=== PATIENT | male | born 1945 | race Caucasian/White ===

== ENCOUNTER 2018-08-29 09:21 | Inpatient (IN) | payer OTHER ==
[~2018-08-29] VITALS: Ht 172.7 cm; Wt 65.8 kg
[~2018-08-29 09:21] MED LIST: ASPI81TA3 PO; GLIPIZIDE; METOPROLOL; [UNRECOGNIZED DRUG - OTHER]
[2018-08-29 09:25] VITALS: BP 154/64
--- NOTE | 2018-08-29 09:28 | NUR ---
0919--- PT BIBA BLS TO ER BED 2
--- NOTE | 2018-08-29 09:45 | NUR ---
PT [facility] FROM [facility] WITH C/O BLOOD IN STOOL. FOUND THE SHEET COVERED WITH RED AND DARK COLORED STOOL THIS MORNING. PT HAS DIALYSIS ACCESS ON LFT UPPER ARM. GETS HD M, W, F. PT AAOX4. HAS GOOD ROM ON BOTH UE AND CIARAN LE. PER , PT WAS AD[facility] TO [facility] W[facility] A[facility] WITH SAME REASON. [facility]GED FROM [facility] TO [facility]. PMH; ANEMIA, ESRD, GERD, HEMEPLEGIA AND HEMEPERISIS FOLLOWING CEREBRAL INFRACTION (RT SIDE AFFECTED), MALIGNANT NEOPLASM OF PROSTRATES, TIA, DM TYPE 2. ALLERGIES: DONEPEZIL, GALANTAMINE, LISINOPRIL, METFORMIN, PCN, RIVASTIGMINE
--- NOTE | 2018-08-29 09:48 | NUR ---
DR. ROGERS BEDSIDE EVALUATING PT
[2018-08-29] MEDS ORDERED: NACL 0.9% 1,000 ML IV ONE (09:54)
--- NOTE | 2018-08-29 10:44 | NUR ---
RADIOLOGY AT BEDSIDE
--- NOTE | 2018-08-29 10:44 | NUR ---
PT TAKEN TO CT. URINE SAMPLE COLLECETED BY STRAIGHT CATH. VS STABLE AT THIS TIME. PT FAMILY AT BEDSIDE.
[2018-08-29 10:47] LABS: BASOPHILS # (AUTO) 0.1 K/uL (0.00-0.22); BASOPHILS % (AUTO) 0.9 % (0.0-2.0); EOSINOPHILS # (AUTO) 0.3 K/uL (0-0.4); EOSINOPHILS % (AUTO) 2.9 % (0.0-4.0); HEMATOCRIT 21.1 % (36-52); LYMPHOCYTES # (AUTO) 0.8 K/uL (2.0-11.5); LYMPHOCYTES % (AUTO) 9.4 % (20.5-51.1); MEAN CORPUSCULAR HEMOGLOBIN 32 pg (27-31); MEAN CORPUSCULAR HGB CONC 33 g/dL (33-37); MEAN CORPUSCULAR VOLUME 97.7 fL (80-94); MONOCYTES # (AUTO) 0.9 K/uL (0.8-1.0); MONOCYTES % (AUTO) 9.7 % (1.7-9.3); NEUTROPHILS # (AUTO) 6.8 K/uL (1.8-7.7); NEUTROPHILS % (AUTO) 77.1 % (42.2-75.2); PLATELET COUNT (AUTO) 296 K/uL (140-450); RED BLOOD CELL COUNT(AUTO) 2.16 MIL/uL (4.20-6.10); RED CELL DISTRIBUTION WIDTH 16.9 % (11.6-13.7); WHITE BLOOD COUNT (AUTO) 8.8 K/uL (4.8-10.8)
--- NOTE | 2018-08-29 10:54 | NUR ---
PT BACK TO BED, BED BRAKES NOT WORKING, UNABLE TO SATBILISE BED WHILE TRANSFER PER CT. US AT THE BEDSIDE. WILL TRANSFER TO THE NEXT BED.
[2018-08-29 10:55] LABS: ANION GAP 11.2 (8-16); CARBON DIOXIDE 29.9 mmol/L (21-32); CHLORIDE 102 mmol/L (98-107); GLUCOSE 184 mg/dL (74-106); HEMOGLOBIN 6.9 g/dL (12.0-18.0); POTASSIUM 4.1 mmol/L (3.5-5.1); SODIUM SERUM 139 mmol/L (136-145); UREA NITROGEN, BLOOD 44 mg/dL (7-18)
[2018-08-29 10:56] LABS: CREATININE 5.7 mg/dL (0.7-1.3)
[2018-08-29 10:59] LABS: APPEARANCE,URINE CLEAR (CLEAR); BILIRUBIN,URINE NEGATIVE (NEGATIVE); BLOOD, URINE TRACE-I (NEGATIVE); COLOR,URINE YELLOW (YELLOW); LEUKOCYTE ESTERASE ,URINE NEGATIVE (NEGATIVE); NITRITE, URINE NEGATIVE (NEGATIVE); PH,URINE 8.5 (5.0-9.0); UGLUCOSE 2+ (NEGATIVE)
[2018-08-29 11:00] LABS: PROTHROMBIN TIME 9.5 secs (10.8-13.4)
[2018-08-29 11:11] LABS: ALBUMIN 2.8 g/dL (3.4-5.0); ASPARTATE AMINOTRANSFERASE 17 U/L (15-37); MAGNESIUM 2.3 mg/dL (1.8-2.4); TOTAL BILIRUBIN 0.3 mg/dL (0.0-1.0)
[2018-08-29 11:12] LABS: THYROID STIMULATING HORMONE 3.92 uIU/mL (0.34-3.74)
[2018-08-29] MEDS ORDERED: CEFEPIME 1,000 MG in DEXTROSE 5% 50 ML IV ONE (11:15)
[2018-08-29] MEDS ORDERED: CEFEPIME 1,000 MG VIAL ONE (11:33)
[2018-08-29] MEDS ORDERED: VITD1000 PO (11:41)
[2018-08-29] MEDS ORDERED: SEVE800T6 PO (11:41)
[2018-08-29] MEDS ORDERED: CARV12.5 PO (11:44)
[2018-08-29] MEDS ORDERED: PANT40EC28 PO (11:51)
[2018-08-29] MEDS ORDERED: MEMA10TA20 PO (11:51)
[2018-08-29] MEDS ORDERED: FERR325E14 PO (11:51)
[2018-08-29] MEDS ORDERED: AMLO5TAB PO (11:51)
[2018-08-29] MEDS ORDERED: ACET-2619 PO (11:55)
[2018-08-29] MEDS ORDERED: MELA3TAB PO (11:55)
[2018-08-29] MEDS ORDERED: HUM SUBQ (12:16)
[2018-08-29] MEDS ORDERED: DORZ10DR2 OP (12:16)
[2018-08-29] MEDS ORDERED: ALPOS OP (12:16)
[2018-08-29] MEDS ORDERED: DOCUSATE SODIUM 100 MG GELCAP PO PRN (12:35)
[2018-08-29] MEDS ORDERED: ACETAMINOPHEN 325 MG TAB PO PRN (12:35)
[2018-08-29] MEDS ORDERED: ONDANSETRON 4 MG/2 ML VIAL IM/IVP PRN (12:35)
[2018-08-29] MEDS ORDERED: HYDROcodone/APAP 7.5/325 MG 1 TAB PO PRN (12:35)
[2018-08-29] MEDS ORDERED: MORPHINE SULFATE 2 MG/ML SYR IVP PRN (12:35)
--- NOTE | 2018-08-29 13:00 | NUR ---
PATIENT ADMITTED TO FLOOR VIA GURNEY. PATIENT NONAMBULATORY D/T GEN WEAKNESS. PATIENT AOX4. RESPIRATIONS EVEN AND UNLABORED ON ROOM AIR. DENIES PAIN AT THIS TIME. GE AT BEDSIDE. UPDATED THEM ON PLAN OF CARE. THEY VERBALIZED UNDERSTANDING. ORIENTED PATIENT AND TO ROOM, BED, BATHROOM, AND TV. SAFETY PRECAUTIONS IN PLACE, BED ON LOWEST SETTING AND LOCKED, WILL CONTINUE TO MONITOR PATIENT.
--- NOTE | 2018-08-29 13:00 | NUR ---
PT ADMITTED TO [facility] FLOOR, REOPRT GIVEN TO RN SAMREEN. PT STABLE. PT ADMITTED TO ROOM 117.
--- NOTE | 2018-08-29 13:10 | NUR ---
Patient will be admitted to care of . Admited to [facility] FLOOR. Will go to [id number]. Belongings list completed. Report to YAO JOLLEY.
[2018-08-29] MEDS ORDERED: NEP PO (14:06)
[2018-08-29] MEDS ORDERED: HYDROmorphone 1 MG/ML AMP IVP PRN (14:10)
--- NOTE | 2018-08-29 14:25 | NUR ---
PATIENT SETTLED IN BED, GE AT SIDE. MRSA DONE. NO COMPLAINTS AT THIS TIME. SAFETY PRECAUTIONS IN PLACE, CALL LIGHT WITHIN REACH, WILL CONTINUE TO MONITOR PATIENT.
[2018-08-29] MEDS ORDERED: SODIUM FERRIC GLUCONATE 125 MG in NACL 0.9% 100 ML IV ONE (15:00)
[2018-08-29] MEDS ORDERED: DEXTROSE 50% 50 ML SYR IVP PRN (15:40)
[2018-08-29 16:00] VITALS: BP 150/87
[2018-08-29] MEDS: BLOOD GLUCOSE MONITORING 1 DEV DEV FS SCH ×2 (16:38→20:18)
[2018-08-29] MEDS: SEVELAMER CARBONATE 800 MG TAB PO SCH (16:52)
--- NOTE | 2018-08-29 16:52 | NUR ---
BLOOD SUGAR 185, PATIENT NPO AND NO FLUIDS. INFORMED DR. MERRILL. DR. MERRILL ORDERED CLEAR LIQUID FOR DINNER, NPO AFTER MIDNIGHT. PER DR MERRILL, NO COVERAGE NEEDED FOR BS OF 185. ORDERED MEDICATION GIVEN. PATIENT TOLERATED IT. ALL NEEDS MET AT THIS TIME. NO COMPLAINTS NOTED. WILL CONTINUE TO MONITOR PATIENT.
--- NOTE | 2018-08-29 18:17 | NUR ---
CONSENT FOR HD IN AM TOMORROW SIGNED. PATIENT AND AWARE OF PLAN. ALL NEEDS MET AT THIS TIME. WILL CONTINUE TO MONITOR PATIENT.
--- NOTE | 2018-08-29 19:05 | NUR ---
REPORT GIVEN AT BEDSIDE TO ROLL CHANGER NURSE FOR CONTINUITY OF CARE. PATIENT IN STABLE CONDITION, GE AT BEDSIDE.
--- NOTE | 2018-08-29 19:06 | NUR ---
RECEIVED BEDSIDE REPORT FROM DAY SHIFT RN SAMREEN. PT A/O X3. ORIENTATED TO PERSON PLACE AND TIME. DOES NOT KNOW WHAT HE IS BEING TREATED FOR IN THE HOSPITAL. ABLE TO MAKE NEEDS KNOWN. DISCUSSED PLAN OF CARE. VERBALIZED UNDERSTANDING. NO SIGNS OF RESP DISTRESS. STANDARD PRECAUTIONS. FALL RISK PROTOCOL IN PLACE. YELLOW GOWN, YELLOW SOCKS, YELLOW SIGN, BED IN LOW POSITION, CALL LIGHT WITHIN REACH. BEDREST. INCONTINENT. IV SITE PATENT AND INTACT. R FA 22G INFUSING NS @10. SKIN INTACT. DO NOT TAKE BLOOD PRESSURE ON RIGHT OR LEFT ARM. SIGN ABOVE BED. NPO AFTER MIDNIGHT. AT BEDSIDE. WILL CONTINUE TO MONITOR.
[2018-08-29 20:00] VITALS: BP 160/60
--- NOTE | 2018-08-29 20:00 | NUR ---
REQUESTS THAT AM LAB DRAW ARE TO BE RESCHEDULED TO TIME OF HEMODIALYSIS. SHE STATED SHE MADE THEM AWARE EARLIER IN THE DAY DURING DAYSHIFT. WILL CONTINUE TO MONITOR.
[2018-08-29] MEDS: DORZOLAMIDE 2% OP 10 ML BTL OP SCH (20:19)
[2018-08-29] MEDS: BRIMONIDINE TARTRATE 0.2% OP 5 ML BTL OP SCH (20:19)
[2018-08-29] MEDS: CARVEDILOL 12.5 MG TAB PO SCH (20:20)
[2018-08-29] MEDS: MEMANTINE 10 MG TAB PO SCH (20:20)
[2018-08-29] MEDS: INSULIN LISPRO SLIDING SCALE 100 UNITS/ML VIAL SUBQ PRN (20:29)
--- NOTE | 2018-08-29 21:00 | NUR ---
ADMINISTERED SCHEDULED MEDICATIONS. EDUCATED ON SIDE EFFECTS. VERBALIZED UNDERSTANDING. TOLERATED WELL. BLOOD SUGAR 241. 4 UNITS HUMALOG GIVEN. WILL CONTINUE TO MONITOR.
--- NOTE | 2018-08-29 21:30 | NUR ---
SATES AND EMPHASIZES ON NO BLOOD TRANSFUSIONS DUE TO YARSANISM REASONS. SIGN ABOVE BED. WILL CONTINUE TO MONITOR.
--- NOTE | 2018-08-29 23:11 | NUR ---
PT IS SLEEPING IN BED. EASILY AROUSABLE NO SIGNS OF DISTRESS. EVEN CHEST RISE. WILL CONTINUE TO MONITOR.
[2018-08-30] VITALS: BP 130/51
--- NOTE | 2018-08-30 01:30 | NUR ---
PT AWAKE IN BED. REPOSITIONED. TOLERATED WELL. NO SIGNS OF RESP DISTRESS. NO REPORT OF PAIN. NO COMPLAINTS AT THIS TIME. WILL CONTINUE TO MONITOR.
--- NOTE | 2018-08-30 03:23 | NUR ---
TELE LEADS ARE REPLACED. PT REPOSITIONED. TOLERATED WELL. DENIES PAIN. WILL CONTINUE TO MONITOR.
[2018-08-30 04:00] VITALS: BP 135/53
--- NOTE | 2018-08-30 06:07 | NUR ---
PT REMOVED IV SITE. CHARGE NURSE ATTEMPTED IV INSERTION. 2 FAILED ATTEMPTS. CALLED ER FOR ASSISTANCE ON IV INSERTION. NO PT DISTRESS. NO PAIN REPORTED. WILL CONTINUE TO MONITOR.
--- NOTE | 2018-08-30 06:36 | NUR ---
UNABLE TO INSERT IV IN RIGHT DUE TO DVT. UNABLE TO INSERT IV INTO LEFT ARM DUE TO SHUNT. RESIDENT UNDER DR CLOUD STATED SHE WOULD CONSULT WITH NEPHRO DR TO GET RECOMMENDATION. WILL CONTINUE TO MONITOR.
--- NOTE | 2018-08-30 06:56 | NUR ---
WILL ENDORSE PT TO DAYSHIFT RN FOR CONTINUITY OF CARE. PT IN STABLE CONDITION. WILL CONTINUE TO MONITOR.
--- NOTE | 2018-08-30 07:46 | NUR ---
RECEIVED HAND OFF REPORT FROM EXEC. CREATIVE DIRECTOR NURSE. PT IS AWAKE IN BED PT IS STABLE AND SHOWS NO SIGNS OF DISTRESS. WILL CONTINUE TO MONITOR. ALL SAFETY MEASURES ARE IN PLACE WILL CONTINUE TO MONITOR.
[2018-08-30 08:00] VITALS: BP 153/65
[2018-08-30] MEDS: BLOOD GLUCOSE MONITORING 1 DEV DEV FS SCH ×4 (08:19→20:14)
--- NOTE | 2018-08-30 08:21 | NUR ---
PLACED KPAD ON PT RIGHT ARM PER DR ORDERS. WILL CONTINUE TO MONITOR.
--- NOTE | 2018-08-30 08:37 | NUR ---
PATIENT HAS BEEN SCREENED AND CATEGORIZED MODERATE NUTRITION RISK. PATIENT WILL BE SEEN WITHIN 3-5 DAYS OF ADMISSION. 09/01/18[address]
[2018-08-30] MEDS ORDERED: FERROUS SULFATE 325 MG TABEC PO SCH ×2 (09:00→13:00)
[2018-08-30] MEDS: DORZOLAMIDE 2% OP 10 ML BTL OP SCH ×2 (10:53→20:08)
[2018-08-30] MEDS: VIT-B COMP/VIT-C/FOLIC ACID 1 TAB PO SCH (10:54)
[2018-08-30] MEDS: SEVELAMER CARBONATE 800 MG TAB PO SCH ×3 (10:54→17:36)
[2018-08-30] MEDS: CHOLECALCIFEROL 1,000 IU TAB PO SCH (10:54)
[2018-08-30] MEDS: PANTOPRAZOLE 40 MG TABEC PO SCH (10:54)
[2018-08-30] MEDS: BRIMONIDINE TARTRATE 0.2% OP 5 ML BTL OP SCH ×2 (10:54→20:08)
[2018-08-30] MEDS: CARVEDILOL 12.5 MG TAB PO SCH ×2 (10:55→20:07)
[2018-08-30] MEDS: MEMANTINE 10 MG TAB PO SCH ×2 (10:55→20:07)
[2018-08-30] MEDS: amLODIPine 5 MG TAB PO SCH (10:55)
--- NOTE | 2018-08-30 10:55 | NUR ---
HELD ALL BP MEDICATIONS THIS MORNING PT IS SCHEDULED TO HAVE DIALYSIS LATER TODAY. BP WAS 153/65 THIS MORNING.
--- NOTE | 2018-08-30 11:00 | NUR ---
WAS TOLD DURING HAND OFF REPORT THAT THE PT WILL HAVE DIAYLSIS AT 0900. AT 1023 NO DIAYLSIS NURSE HAD ARRIVED FOR MY PT. CALLED AND SPOKE WITH MOE PAYAL STATED THAT NO ONE CALLED HER TO TELL HER ABOUT THE DIAYLSIS. PAYAL SAID SHE HAS A NURSE HERE FOR ANOTHER PATIENT AND SHE WILL HAVE THE NURSE SEE MY PATIENT AFTERWARDS.
[2018-08-30 12:00] VITALS: BP 165/80
--- NOTE | 2018-08-30 12:30 | NUR ---
FREQUENT ROUNDING ON PT PT IS AWAKE IN BED PT APPEARS STABLE AND IN NO APPARENT DISTRESS. ALL SAFETY MEASURES ARE IN PLACE WILL CONTINUE TO MONITOR.
[2018-08-30] MEDS ORDERED: MAGNESIUM CITRATE 300 ML BTL PO ONE (13:45)
[2018-08-30] MEDS ORDERED: MAGNESIUM CITRATE 300 ML BTL PO SCH (14:00)
[2018-08-30] MEDS ORDERED: EPOETIN ALFA 10,000 UNITS/ML VIAL SUBQ SCH (14:00)
[2018-08-30] MEDS ORDERED: SENNA 8.6 MG TAB PO SCH (14:00)
--- NOTE | 2018-08-30 14:25 | NUR ---
FREQUENT ROUNDING ON PT ALL SAFETY MEASURES ARE IN PLACE. PT APPEARS STABLE AND IN NO APPARENT DISTRESS. WILL CONTINUE TO MONITOR.
[2018-08-30 16:00] VITALS: BP 104/60
--- NOTE | 2018-08-30 16:25 | NUR ---
WAS CHANGING ANOTHER PATIENT ONCE FINISHED WENT TO CHECK ON MR. SANTIAGO. DIAYLSIS NURSE HAD ALREADY STARTED DIALYSIS. ASKED HER IF I CAN HAVE SOME BLOOD FOR THE LAB WORK. SHE SAID SHE HAS ALREADY STARTED THE DIALYSIS AND IT IS TO FAR INTO IT THAT THE LAB WORK WILL BE INACCURATE.
[2018-08-30] MEDS: LACTULOSE 20 GM/30 ML UDC PO SCH (17:36)
[2018-08-30] MEDS: INSULIN LISPRO SLIDING SCALE 100 UNITS/ML VIAL SUBQ PRN ×2 (17:41→20:39)
--- NOTE | 2018-08-30 17:45 | NUR ---
PT VOMITING. CHANGED LINEN PT VOMITED ABOUT 200ML EMESIS
--- NOTE | 2018-08-30 19:30 | NUR ---
ENDORSED PT TO PM RN PT IS STABLE AND IN NO APPARENT DISTRESS. ALL SAFETY MEASURES ARE IN PLACE
--- NOTE | 2018-08-30 19:30 | NUR ---
RECEIVED PT FROM DAY SHIFT RN. NO SIGNS OF RESP DISTRESS. STANDARD PRECAUTIONS. NEED TO CALL FOR APPROVAL TO DRAW BLOOD. FALL RISK PROTOCOL IN PLACE. YELLOW GOWN, YELLOW SOCKS, YELLOW SIGN, BED IN LOW POSITION, CALL LIGHT WITHIN REACH. BEDREST. INCONTINENT. NO BLOOD PRODUCT ALLOWED FOR HIS CHURCH, JEHOVAH WITNESS . NO IV SITE D/T LEFT ARM, AV SHUNT FOR HD, RIGHT ARM DVT. NPO AFTER MIDNIGHT FOR COLONOSCOPY. WILL CONTINUE TO MONITOR.
--- NOTE | 2018-08-30 19:35 | NUR ---
CALLED AND SHE DOUBLE CHECKED NO BLOOD DRAWN FOR TODAY AND APPROVED. CALLED LAB TO DRAW BLOOD BUT JUST CANCEL BLOOD DRAW UNTIL TOMORROW MORNING 6AM. CALL AGAIN AND LET HER KNOW.
[2018-08-30 20:00] VITALS: BP 146/39
--- NOTE | 2018-08-30 20:00 | NUR ---
CALL AND EXPLAINED PT WILL HAVE COLONOSCOPY TOMORROW MORNING AND PROCEDURE. TOLD HER RN WILL GET SIGNATURE FROM PT ON CONSENT. PT'S AWARE AND WANTS TO CALL HER BACK IF PT DOES NOT WANT TO SIGN.
[2018-08-30] MEDS: POLYETHYLENE GLYCOL 17 GM/PKT PO SCH (20:07)
--- NOTE | 2018-08-30 20:14 | NUR ---
GIVEN ALPHAGAN, TRUSOPT, COREG, MIRALAX, NAMENDA ORDERED. PT TOLERATED WELL. BS CHECKED, 162. INSULIN WILL BE ADMINISTERED SLIDING SCALE.
--- NOTE | 2018-08-30 20:39 | NUR ---
HUMALOG INSULIN [address]Heather ORDERED. PT TOLERATED WELL. WILL CONTINUE TO MONITOR.
--- NOTE | 2018-08-30 22:55 | NUR ---
PT SLEEPING IN BED. RESPIRATION EVEN AND UNLABORED. NO ACUTE DISTRESS NOTED. WILL CONTINUE TO MONITOR.
[2018-08-31] VITALS: BP 138/32
--- NOTE | 2018-08-31 00:15 | NUR ---
VS CHECKED. BP CHECK ON RIGHT THIGH D/T AV SHUNT AND DVT. 128/[address] HUNG. RECHECKED ON LEFT THIGH, 138/32 NOTED. WILL CONTINUE TO MONITOR.
[2018-08-31 04:00] VITALS: BP 143/55
--- NOTE | 2018-08-31 04:00 | NUR ---
VS CHECKED, WITHIN PT'S BASELINE, 143/55 BP NOTED. RESPIRATION EVEN AND UNLABORED. BED IN LOWEST POSITION. WILL CONTINUE TO MONITOR.
[2018-08-31] MEDS: BLOOD GLUCOSE MONITORING 1 DEV DEV FS SCH ×4 (05:44→21:30)
--- NOTE | 2018-08-31 05:44 | NUR ---
BS CHECKED, 94. NO INSULIN COVERAGE NEEDED.
[2018-08-31 06:09] LABS: FOLIC ACID > 20.00 ng/mL (>3.0)
[2018-08-31 07:15] LABS: ANION GAP 15.3 (8-16); BASOPHILS # (AUTO) 0.2 K/uL (0.00-0.22); BASOPHILS % (AUTO) 1.8 % (0.0-2.0); CARBON DIOXIDE 28.6 mmol/L (21-32); CHLORIDE 101 mmol/L (98-107); EOSINOPHILS # (AUTO) 0.3 K/uL (0-0.4); EOSINOPHILS % (AUTO) 3.1 % (0.0-4.0); GLUCOSE 105 mg/dL (74-106); LYMPHOCYTES # (AUTO) 1.1 K/uL (2.0-11.5); LYMPHOCYTES % (AUTO) 11.5 % (20.5-51.1); MEAN CORPUSCULAR HEMOGLOBIN 32 pg (27-31); MEAN CORPUSCULAR HGB CONC 33 g/dL (33-37); MONOCYTES % (AUTO) 10.8 % (1.7-9.3); NEUTROPHILS # (AUTO) 6.8 K/uL (1.8-7.7); NEUTROPHILS % (AUTO) 72.8 % (42.2-75.2); PLATELET COUNT (AUTO) 272 K/uL (140-450); POTASSIUM 3.9 mmol/L (3.5-5.1); RED BLOOD CELL COUNT(AUTO) 1.95 MIL/uL (4.20-6.10); RED CELL DISTRIBUTION WIDTH 16.5 % (11.6-13.7); SODIUM SERUM 141 mmol/L (136-145); UREA NITROGEN, BLOOD 27 mg/dL (7-18); WHITE BLOOD COUNT (AUTO) 9.3 K/uL (4.8-10.8)
--- NOTE | 2018-08-31 07:16 | NUR ---
ENDORSED PT TO DAY SHIFT NURSE. PT IN STABLE CONDITION.
[2018-08-31 07:20] LABS: CREATININE 4.3 mg/dL (0.7-1.3)
--- NOTE | 2018-08-31 07:20 | NUR ---
RECEIVED HAND OFF REPORT FROM NEEDLE GRINDER NURSE. PT IS AWAKE AND IN BED. PT APPEARS STABLE AND IN NO APPARENT DISTRESS. ALL SAFETY MEASURES ARE IN PLACE. WILL CONTINUE TO MONITOR.
[2018-08-31 07:29] LABS: PHOSPHORUS 2.8 mg/dL (2.5-4.9)
[2018-08-31 07:31] LABS: CHOL/HDL RATIO 5.8 (1-4.5)
[2018-08-31 07:39] LABS: HEMOGLOBIN 6.2 g/dL (12.0-18.0)
[2018-08-31 08:00] VITALS: BP 143/48
[2018-08-31] MEDS: LACTULOSE 20 GM/30 ML UDC PO SCH ×3 (09:28→17:39)
[2018-08-31] MEDS: DORZOLAMIDE 2% OP 10 ML BTL OP SCH ×2 (09:28→21:09)
[2018-08-31] MEDS: POLYETHYLENE GLYCOL 17 GM/PKT PO SCH ×2 (09:28→21:21)
[2018-08-31] MEDS: BRIMONIDINE TARTRATE 0.2% OP 5 ML BTL OP SCH ×2 (09:28→21:08)
[2018-08-31] MEDS: VIT-B COMP/VIT-C/FOLIC ACID 1 TAB PO SCH (09:29)
[2018-08-31] MEDS: CHOLECALCIFEROL 1,000 IU TAB PO SCH (09:29)
[2018-08-31] MEDS: MEMANTINE 10 MG TAB PO SCH ×2 (09:29→21:19)
[2018-08-31] MEDS: PANTOPRAZOLE 40 MG TABEC PO SCH (09:29)
[2018-08-31] MEDS: SEVELAMER CARBONATE 800 MG TAB PO SCH (09:29)
[2018-08-31] MEDS: amLODIPine 5 MG TAB PO SCH (09:29)
[2018-08-31] MEDS: CARVEDILOL 12.5 MG TAB PO SCH ×2 (09:30→21:00)
[2018-08-31] MEDS: SODIUM FERRIC GLUCONATE 125 MG in NACL 0.9% 100 ML IV SCH (10:00)
--- NOTE | 2018-08-31 10:15 | NUR ---
PT HAS NOT HAD AN IV SITE SINCE 08/30 RIM FIRE PRIMING TOOL SETTER AM. PT HAS A LEFT ARM AV SHUNT AND A DVT IN THE RIGHT ARM, RESIDENTS AND DRS WERE AWARE. ASKED DR. BALDERAS. WHAT TO DO TODAY BECAUSE OF THE IV MEDICATIONS AND ALSO THE PROCEDURE WE ARE PLANNING TO DO TODAY. DR. BALDERAS SPOKE WITH THE PATIENT ADN THE PATIENTS ABOUT HAVE A CENTRAL LINE PLACE BY DR. PATIÑO. BOTH THE PATIENT AND HIS AGREED TO THE PROCEDURE. DR. PATIÑO IS AWARE AND WILL PLACE THE CENTRAL LINE WHEN HE IS AVAILABLE
[2018-08-31 10:35] LABS: TRANSFERRIN 132 mg/dL (200 - 370)
[2018-08-31 12:00] VITALS: BP 93/64
--- NOTE | 2018-08-31 12:00 | NUR ---
PT WAS LETHARGIC. BLOOD PRESSURE WAS 90/62. RECHECKED BLOOD PRESSURE 3 TIMES ARE THE RIGHT THIGH. CHECKED BLOOD SUGAR. FINGERSTICK GLUCOSE WAS 129. INFORMED DESIRAE PASCUAL. DR. MERRILL AND DR. MURILLO CAME TO THE PATIENTS BEDSIDE AND ASSESSED THE PATIENT THEY ARE AWARE THE HIGHEST BLOOD PRESSURE WAS 93/64. WAS TOLD TO CONTINUE TO MONITOR THE PATIENT. THE PATIENTS FAMILY IS AT BEDSIDE.
--- NOTE | 2018-08-31 13:00 | NUR ---
INSTRUCTED FAMILY THAT IT WOULD BE GOOD TO HELP THE PATIENT ATTEMPT TO DRINK THE MIGHTY SHAKE BECAUSE IT HAS ALOT OF PROTEIN. PT DRANK 1 AND A HALF OF THE MIGHTY SHAKES.
[2018-08-31] MEDS: SENNA 8.6 MG TAB PO SCH ×2 (13:23→17:39)
--- NOTE | 2018-08-31 14:25 | NUR ---
FREQUENT ROUNDING ON PT PT APPEARS STABLE AND IN NO APPARENT DISTRESS. ALL SAFETY MEASURES ARE IN PLACE WILL CONTINUE TO MONITOR.
[2018-08-31 16:00] VITALS: BP 103/33
--- NOTE | 2018-08-31 16:30 | NUR ---
FREQUENT ROUNDING ON PT PT APPEARS STABLE AND IN NO APPARENT DISTRESS. ALL SAFETY MEASURES ARE IN PLACE.
--- NOTE | 2018-08-31 16:45 | NUR ---
PT HAD A BOWEL MOVEMENT THAT WAS DARK WITH BRIGHT RED. MODERATE SIZED BOWEL MOVEMENT. CHANGED PT LINENS AND GOWN AND REPOSITIONED THE PATIENT.
[2018-08-31] MEDS: INSULIN LISPRO SLIDING SCALE 100 UNITS/ML VIAL SUBQ PRN ×2 (17:58→21:31)
--- NOTE | 2018-08-31 18:04 | NUR ---
FREQUENT ROUNDING ON PT PT APPEARS STABLE AND IN NO APPARENT DISTRESS. ALL SAFETY MEASURES ARE IN PLACE. VENTURI MASK ON 15L AT 50%. WILL CONTINUE TO MONITOR
--- NOTE | 2018-08-31 19:29 | NUR ---
ENDORSED PT TO PM RN PT APPEARS STABLE AND IN NO APPARENT DISTRESS, ALL SAFETY MEASURES ARE IN PLACE. PT FAMILY IS AT BEDSIDE.
--- NOTE | 2018-08-31 19:30 | NUR ---
RECEIVED REPORT FROM DOUG SAMAYOA DAYSHIFT NURSE AT BEDSIDE FOR CONTINUITY OF CARE, PT IN STABLE CONDITION.
--- NOTE | 2018-08-31 19:45 | NUR ---
DR. PATIÑO AT BEDSIDE PUTTING IN CENTRAL LINE.
[2018-08-31 20:00] VITALS: BP 84/22
--- NOTE | 2018-08-31 20:00 | NUR ---
PT FINGERSTICK IS 192, GIVEN 2 UNITS OF HUMALOG COVERAGE.
--- NOTE | 2018-08-31 21:00 | NUR ---
CHEST X RAY IS POSITIVE PLACEMENT FOR CENTRAL LINE. PT IN BED ALL FALLS PRECAUTIONS IN PLACE. TRIPLE LUMEN CENTRAL LINE PLACED ON R UPPER CHEST. AV SHUNT ON LEFT ARM POSITIVE FOR THRILL AND BRUIT. PT IS AWAKE AOX1 BUT LETHARGIC. V/S FOLLOWS T 99.6 P 91 R 20 B/P 84/22 02 99% ON ROOM AIR. PT COREG HELD DUE TO LOW B/P . COOLING MEASURES ALSO PROVIDED TP PT DUE TO SLIGHT INCREASE IN TEMPERATURE. PT GIVEN NEMANDA AND MIRALAX BUT HAVING DIFFICULTY SWALLOWING. FAMILY AT BEDSIDE. FAMILY REPORTING THAT PT HAS BEEN HAVING DIFFICULTY SWALLOWING. FAMILY ALSO ASKING ABOUT PT RECEIVING ANY MORE IRON. WILL SPEAK WITH DR. LEES REGARDING PT B/P AND FAMILY REQUEST.
[2018-08-31] MEDS: CHLORHEXADINE GLUC 2% CLOTH TP SCH (21:15)
--- NOTE | 2018-08-31 22:00 | NUR ---
SPOKE WITH DR. LEES CONCERNING FAMILY REQUEST. MD AWARE OF B/P MED THAT WAS HELD WELL REQUESTS OF FAMILY. MD LEES SPOKE WITH FAMILY AT BEDSIDE AND EXPLAINED THE PLAN OF CARE. SWALLOW EVALUATION ORDERED.
[2018-09-01] VITALS: BP 95/29
--- NOTE | 2018-09-01 | NUR ---
PT CLEANED, TURNED, CHANGED AND REPOSITIONED. HE HAD A LARGE BM X1 BM WAS LOOSE, BLACK WITH SMEARED BLOOD. V/S FOLLOWS T 99.7 ICE PACKS FOR COOLING MEASURES PROVIDED. OTHER V/S FOLLOWS P 85 R 18 B/P 95/29 02 95% ON ROOM AIR. SCD;S IN PLACE WELL ALL FALLS PRECAUTIONS IN PLACE. NO S/S OF PAIN OR DISTRESS NOTED.
--- NOTE | 2018-09-01 02:00 | NUR ---
PT IN BED SLEEPING NO S/S OF PAIN OR DISTRESS NOTED.
[2018-09-01 04:00] VITALS: BP 103/25
--- NOTE | 2018-09-01 04:00 | NUR ---
PT TURNED, CHANGED AND REPOSITIONED. AWAKE AND ALERT WITH NO S/S OF PAIN OR DISTRESS, PT ASKED WHERE IS EVERYONE, PT REORIENTED AND REMINDED THAT IT WAS 4 AM IN THE MORNING AND THAT WE WILL TAKE CARE OF HIM AND FAMILY WILL COME BACK THIS MORNING. V/S FOLLOWS T 98.1 P 88 R 18 B/P 103/25 02 96% ON ROOM AIR. PT HAD NO C/O OF PAIN AND ALL REQUESTED NEEDS ATTENDED.
[2018-09-01 06:54] LABS: BASOPHILS # (AUTO) 0.1 K/uL (0.00-0.22); EOSINOPHILS # (AUTO) 0.2 K/uL (0-0.4); EOSINOPHILS % (AUTO) 1.4 % (0.0-4.0); MEAN CORPUSCULAR HEMOGLOBIN 31 pg (27-31); MEAN CORPUSCULAR HGB CONC 32 g/dL (33-37); MEAN CORPUSCULAR VOLUME 98.6 fL (80-94); MONOCYTES # (AUTO) 1.3 K/uL (0.8-1.0); MONOCYTES % (AUTO) 10.6 % (1.7-9.3); NEUTROPHILS # (AUTO) 9.4 K/uL (1.8-7.7); PLATELET COUNT (AUTO) 273 K/uL (140-450); RED CELL DISTRIBUTION WIDTH 17.1 % (11.6-13.7); WHITE BLOOD COUNT (AUTO) 11.9 K/uL (4.8-10.8)
[2018-09-01 07:00] LABS: ANION GAP 18.1 (8-16); CARBON DIOXIDE 26.7 mmol/L (21-32); CHLORIDE 99 mmol/L (98-107); GLUCOSE 144 mg/dL (74-106); POTASSIUM 3.8 mmol/L (3.5-5.1); SODIUM SERUM 140 mmol/L (136-145); UREA NITROGEN, BLOOD 35 mg/dL (7-18)
[2018-09-01 07:02] LABS: CREATININE 6.2 mg/dL (0.7-1.3)
--- NOTE | 2018-09-01 07:15 | NUR ---
REPORT GIVEN TO DOUG RN AT BEDSIDE FOR CONTINUITY OF CARE, PT IN STABLE CONDITION.
--- NOTE | 2018-09-01 07:25 | NUR ---
RECEIVED HAND OFF REPORT FROM CHAINER NURSE PT IS AWAKE IN BED, PT APPEARS STABLE AND IN NO APPARENT DISTRESS. ALL SAFETY MEASURES ARE IN PLACE. WILL CONTINUE TO MONITOR.
[2018-09-01 07:28] LABS: HEMATOCRIT 18.7 % (36-52)
[2018-09-01 07:30] LABS: HEMOGLOBIN 5.9 g/dL (12.0-18.0)
[2018-09-01] MEDS: BLOOD GLUCOSE MONITORING 1 DEV DEV FS SCH ×4 (07:39→21:00)
[2018-09-01 08:00] VITALS: BP 140/57
--- NOTE | 2018-09-01 08:30 | NUR ---
DIALYSIS NURSE IS AT PT BEDSIDE AND WILL BEGIN THE PROCEDURE.
[2018-09-01] MEDS ORDERED: EPOETIN ALFA 10,000 UNITS/ML VIAL SUBQ SCH (09:00)
[2018-09-01] MEDS: MEMANTINE 10 MG TAB PO SCH ×2 (09:00→22:05)
[2018-09-01] MEDS: CARVEDILOL 12.5 MG TAB PO SCH ×2 (09:00→21:00)
[2018-09-01] MEDS: CHOLECALCIFEROL 1,000 IU TAB PO SCH (09:00)
[2018-09-01] MEDS: LACTOBACILLUS RHAMNOSUS GG 1 EACH CAP PO SCH (09:00)
[2018-09-01] MEDS: VIT-B COMP/VIT-C/FOLIC ACID 1 TAB PO SCH (09:00)
[2018-09-01] MEDS: SENNA 8.6 MG TAB PO SCH ×3 (09:00→17:52)
[2018-09-01] MEDS: amLODIPine 5 MG TAB PO SCH (09:00)
[2018-09-01] MEDS: POLYETHYLENE GLYCOL 17 GM/PKT PO SCH ×3 (09:01→21:00)
[2018-09-01] MEDS: LACTULOSE 20 GM/30 ML UDC PO SCH ×3 (09:01→17:52)
[2018-09-01] MEDS: PANTOPRAZOLE 40 MG TABEC PO SCH (09:01)
[2018-09-01] MEDS: BRIMONIDINE TARTRATE 0.2% OP 5 ML BTL OP SCH ×2 (09:02→22:39)
[2018-09-01] MEDS: DORZOLAMIDE 2% OP 10 ML BTL OP SCH ×2 (09:02→22:40)
--- NOTE | 2018-09-01 09:30 | NUR ---
SPOKE WITH PTS FAMILY ON THE PHONE
[2018-09-01] MEDS: SODIUM FERRIC GLUCONATE 125 MG in NACL 0.9% 100 ML IV SCH ×2 (10:23→17:51)
--- NOTE | 2018-09-01 11:25 | NUR ---
FREQUENT ROUNDING ON PT PT IS AWAKE IN BED DIALYSIS NURSE IS AT BEDSIDE. PT APPEARS STABLE AND IN NO APPARENT DISTRESS. ALL SAFETY MEASURES ARE IN PLACE WILL CONTINUE TO MONITOR
[2018-09-01 12:00] VITALS: BP 140/91
[2018-09-01] MEDS ORDERED: PIPER/TAZO 3.375GM/D5W PREMIX 50 ML IV SCH (12:00)
--- NOTE | 2018-09-01 12:30 | NUR ---
DIALYSIS COMPLETED 3.5 HOURS PER ORDERED. INFORMED THAT THERE WAS 1 L OUT
[2018-09-01] MEDS: INSULIN LISPRO SLIDING SCALE 100 UNITS/ML VIAL SUBQ PRN ×3 (12:39→22:26)
[2018-09-01] MEDS: PIPER/TAZO 2.25GM/D5W PREMIX 50 ML IV SCH ×2 (13:36→22:51)
--- NOTE | 2018-09-01 13:37 | NUR ---
S.T. BEDSIDE SWALLOW EVAL COMPLETED See report for details. Pt presents with moderate oropharyngeal dysphagia c/b bolus holding and delayed pharyngeal swallow initiation, and coughing after swallows of thin liquids from full liquid lunch tray (cream soup and protein shake). No overt s/s aspiration observed with nectar and honey thick liquids via spoon and controlled straw sips. Recommend: 1) Continue full liquid diet as indicated for GI; downgrade liquid texture to nectar thick liquids only, including soups, juices, shakes, water and no ice chips or popsicles, as they are thin liquids. 2) P.O. meds crushed 3) Slowly advance diet as tolerated as pt's strength/endurance improves. 4) 1:1 feeder w/ aspiration precautions. No further tx indicated at this time. DC to [facility]. D/w YAO Burdick. Time [id number]
--- NOTE | 2018-09-01 14:24 | NUR ---
DR BASHIR SPOKE WITH PATIENT'S AND PATIENT'S DAUGHTER REGARDING PATIENT'S CONDITION AND ANSWERED AND ADDRESSED ALL THEIR QUESTIONS. GE AND DAUGHTER VERBALIZED UNDERSTANDING AND STATED THEY DID NOT HAVE ADDITIONAL QUESTIONS NOR CONCERNS. THEY ARE SATISFIED THAT ALL THEIR CONCERNS AND ISSUES HAVE BEEN RESOLVED. I HAD A DISCUSSION WITH GE REGARDING CODE STATUS. PER GE, SHE WOULD LIKE PATIENT TO REMAIN FULL CODE. PER PATIENT'S GE, SHE WOULD LIKE TO KNOW IF PATIENT'S [place] ( ADMINISTRATION) INSURANCE COVERAGE WILL COVER PATIENT'S HOSPITAL ADMISSION. I EXPLAINED TO HER I WILL NOTIFY [place] ATTENDANT CARLOS EXT [phone] OF HER REQUEST AND PROVIDED HER WITH CARLOS'S CONTACT INFORMATION. I INFORMED CARLOS OF PATIENT'S QUESTION. PER CARLOS, SHE WILL SPEAK WITH EG REGARDING THIS ISSUE.
[2018-09-01] MEDS ORDERED: MAGNESIUM CITRATE 300 ML BTL PO SCH (15:00)
[2018-09-01 16:00] VITALS: BP 131/71
--- NOTE | 2018-09-01 16:45 | NUR ---
PT HAD LARGE BLOODY LOOSE STOOL, CLEANED REPOSITIONED PATIENT
--- NOTE | 2018-09-01 18:25 | NUR ---
FINGERSTICK GLUCOSE WAS 221 ADMINISTERED 4 UNITS HUMALOG PER SLIDING SCALE WILL CONTINUE TO MONITOR.
--- NOTE | 2018-09-01 19:29 | NUR ---
RECIEVED PT, AWAKABLE BY NAME , CAN LOCALIZES PAIN , BUT INAPPROPRIATE HISTORIAN -HX OF DEMENTIA. ,NID ,HAD EPISODE OF TWO LARGE BLOODY DIARRHEA AM NURSE REPORTED TO ME , WITH CENTRAL LINE ,WITH AV FISTULA AT LEFT ARM ,WITH DVT AT RIGHT ARM , POST DIALYSIS , PLAN OF CARE DISCUSSED TO RELATIVES AT BEDSIDE , CALL LIGHT WITHIN REACH , SIDE RAILS UPX2 ,BED ALARM ON ,BED IN LOW POSITION . WILL CLOSELY MONITOR .
--- NOTE | 2018-09-01 19:29 | NUR ---
ENDORSED PT TO FREIGHT RATE ANALYST NURSE. PT IS AWAKE IN BED FAMILY IS AT PATIENT BEDSIDE. ALL SAFETY MEASURES ARE IN PLACE. PT APPEARS STABLE AND IN NO APPARENT DISTRESS.
[2018-09-01 20:00] VITALS: BP 86/57
--- NOTE | 2018-09-01 20:00 | NUR ---
V/S : BP 86/57 BY AUTOMATIC MACHINE , RE CHECKED BP BY MANUALLY BP 90/60 , PT IS NOT ON TACHYCARDIC , ON ANTENNA RIGGER -SR ,NID , AWAKABLE BY NAME , CALL LIGHT WITHIN REACH - WILL CLOSELY MONITOR . NO STOOL AT THIS TIME .
[2018-09-01] MEDS: CHLORHEXADINE GLUC 2% CLOTH TP SCH (21:15)
--- NOTE | 2018-09-01 22:00 | NUR ---
MADE ROUNDS , BP RE CHECKED MANUALLY PERSISTENT 90/60 , NID , NOT ON TACHYCARDIC ,ON FINISHING DEPARTMENT SUPERVISOR -SR ,PASSED OUT MEDIUM AMOUNT OF WATERY BROWNISH DIARRHEA , INFORM LYUDMILA ABOUT THE PT. CONDITION ,MADE NEW ORDERS AND CARRIED OUT - IVF RE INSTALLING NSS AT20CC /HR PER [facility] LINE . ORDERED BY LYUDMILA. , ON CLOSELY WATCH. CALL LIGHT WITHIN REACH
[2018-09-01] MEDS: NACL 0.9% 1,000 ML IV SCH (22:57)
[2018-09-02] VITALS (7 sets, daily range): BP systolic 80–133; BP diastolic 42–60
--- NOTE | 2018-09-02 | NUR ---
V/S BP STILL 90/60 - NO BLOODY DIARRHEA AT THIS TIME , NID , AWAKABLE BY NAME , NOT IN TACHYCARDIC , ON HARNESS PULLER -SR , ON CLOSELY WATCH , CALL LIGHT WITHIN REACH . LYUDMILA AWARE ABOUT PT. CONDITION.
[2018-09-02] MEDS ORDERED: Z-GUARD PASTE TP PRN (01:55)
--- NOTE | 2018-09-02 02:00 | NUR ---
BP STILL 90/60 , PASSED OUT LARGE BLOODY DIARRHEA - SEEN AND EXAMINE BY LYUDMILA , NO FUTHER ORDERS MADE BUT STILL ON CLOSELY WATCH , O2 SAT 99 % , NOT TACHYCARDIC ,ON SORTING MACHINE ATTENDANT , AWAKABLE BY NAME , FOLLOWS SIMPLE COMMANDS.
--- NOTE | 2018-09-02 04:00 | NUR ---
MADE ROUNDS , BP 80/60 MMHG BY AUTOMATIC BP MACHINE . 90/60 MMHG BY MANUALLY , NOT TACHYCARDIC , ON FIELD SERVICE ANALYST -SR ,LYUDMILA AWARE ABOUT PT.CONDITION , AWAKABLE BY NAME , CAN FOLLOW SIMPLE COMMANDS . CALL LIGHT WITHIN REACH , ON CLOSELY WATCH - CHARGE INFORMED ABOUT PT. CONDITION.
--- NOTE | 2018-09-02 06:00 | NUR ---
MADE ROUNDS, SLEEPY ,AWAKABLE BY NAME , BP 90/60 BY MANUALLY , 80/60 MMHG BY AUTOMATIC BP MACHINE , DC 88 BY MANUALLY , ON SUPPORT TECHNICIAN -SR ,NID ,02 SAT 99% ,PASSED OUT LARGE BLOODY DIARRHEA , ON CLOSELY WATCH - LYUDMILA AWARE ABOUT PT. CONDITION.CALL LIGHT WITHIN REACH .
[2018-09-02] MEDS: PIPER/TAZO 2.25GM/D5W PREMIX 50 ML IV SCH ×2 (06:16→13:04)
[2018-09-02 06:37] LABS: ANION GAP 14.7 (8-16); CARBON DIOXIDE 25.9 mmol/L (21-32); CHLORIDE 108 mmol/L (98-107); CREATININE 3.9 mg/dL (0.7-1.3); GLUCOSE 138 mg/dL (74-106); POTASSIUM 3.6 mmol/L (3.5-5.1); SODIUM SERUM 145 mmol/L (136-145); UREA NITROGEN, BLOOD 13 mg/dL (7-18)
[2018-09-02 06:43] LABS: MAGNESIUM 2.5 mg/dL (1.8-2.4); PHOSPHORUS 2.6 mg/dL (2.5-4.9)
[2018-09-02] MEDS: BLOOD GLUCOSE MONITORING 1 DEV DEV FS SCH ×4 (06:43→20:49)
[2018-09-02 06:55] LABS: BASOPHILS # (AUTO) 0.1 K/uL (0.00-0.22); BASOPHILS % (AUTO) 0.8 % (0.0-2.0); EOSINOPHILS # (AUTO) 0.2 K/uL (0-0.4); EOSINOPHILS % (AUTO) 1.4 % (0.0-4.0); HEMATOCRIT 20.5 % (36-52); LYMPHOCYTES # (AUTO) 0.8 K/uL (2.0-11.5); LYMPHOCYTES % (AUTO) 5.3 % (20.5-51.1); MEAN CORPUSCULAR HEMOGLOBIN 32 pg (27-31); MEAN CORPUSCULAR HGB CONC 32 g/dL (33-37); MEAN CORPUSCULAR VOLUME 100.4 fL (80-94); MONOCYTES # (AUTO) 1.2 K/uL (0.8-1.0); MONOCYTES % (AUTO) 8.6 % (1.7-9.3); NEUTROPHILS # (AUTO) 11.9 K/uL (1.8-7.7); NEUTROPHILS % (AUTO) 83.9 % (42.2-75.2); PLATELET COUNT (AUTO) 261 K/uL (140-450); RED BLOOD CELL COUNT(AUTO) 2.04 MIL/uL (4.20-6.10); RED CELL DISTRIBUTION WIDTH 17.4 % (11.6-13.7); WHITE BLOOD COUNT (AUTO) 14.2 K/uL (4.8-10.8)
--- NOTE | 2018-09-02 07:00 | NUR ---
PT.'S SON CALLED VIA PHONE , HE SAID HE WANTS TO KNOW ABOUT UPDATE CONDITION OF HIS FATHER .- INFORMED CHARGE NURSE ABOUT PT'S SON REQUEST - CHARGE NURSE GOT THE NAME AND CONTACT NUMBERS OF PT'S SON -WILL ARRANGE TO COMMUNICATE TO THE DOCTOR .PT STILL ON CLOSELY WATCH BECAUSE OF PERSISTENT LOW BP AND BLOODY DIARRHEA.
[2018-09-02 07:12] LABS: HEMOGLOBIN 6.5 g/dL (12.0-18.0)
--- NOTE | 2018-09-02 07:30 | NUR ---
ENDORSED TO AM SHIFT - FOR TRANSFER TO ICU DUE TO LOW BP 80/60 MMHG AND PERSISTENT BLOODY DIARRHEA.
--- NOTE | 2018-09-02 07:45 | NUR ---
REPORT WAS GIVEN TO ICU NURSE FOR CONTINUITY OF CARE. PATIENT WAS DROWSY, ABLE TO ANSWER QUESTIONS APPROPRIATELY. RESPIRATION EVEN, UNLABOR ON ROOM AIR. NO DISTRESS NOTED AT THIS TIME. VS 80/60, 99%, HR 84.
--- NOTE | 2018-09-02 07:50 | NUR ---
report give by tele nurse christa. patient alert. communicates spanish well and able to communicate needs. skin intact. nurse christa stated "2 large loose bloody bowel movements this morning". tele nurse states central line placed on 08/30 3 lumen by in left sub clav. site is intact and no redness or swelling noted. patient has no swelling in lower extremities. skin color warm to touch and wnl. vital signs wnl. bed in lowest position. side rails up and call light at bedside.
[2018-09-02] MEDS ORDERED: PROBIOTIC SCREEN 1 EA MISC MC PRN (08:15)
[2018-09-02] MEDS: PANTOPRAZOLE 40 MG TABEC PO SCH (09:02)
--- NOTE | 2018-09-02 09:02 | NUR ---
DR. WHIPPLE IS HERE TO SEE PATIENT, UPDATED ON PATIENT'S CONDITION. WILL FOLLOW UP ON ANY ORDERS.
[2018-09-02] MEDS: LACTOBACILLUS RHAMNOSUS GG 1 EACH CAP PO SCH (09:03)
[2018-09-02] MEDS: SENNA 8.6 MG TAB PO SCH ×3 (09:03→20:04)
[2018-09-02] MEDS: MEMANTINE 10 MG TAB PO SCH ×2 (09:03→20:03)
[2018-09-02] MEDS: LACTULOSE 20 GM/30 ML UDC PO SCH ×2 (09:03→12:04)
[2018-09-02] MEDS: VIT-B COMP/VIT-C/FOLIC ACID 1 TAB PO SCH (09:03)
[2018-09-02] MEDS: POLYETHYLENE GLYCOL 17 GM/PKT PO SCH ×2 (09:04→12:05)
[2018-09-02] MEDS: SODIUM FERRIC GLUCONATE 125 MG in NACL 0.9% 100 ML IV SCH ×3 (09:11→17:00)
[2018-09-02] MEDS: DORZOLAMIDE 2% OP 10 ML BTL OP SCH ×2 (09:11→20:48)
[2018-09-02] MEDS: BRIMONIDINE TARTRATE 0.2% OP 5 ML BTL OP SCH ×2 (09:12→20:47)
[2018-09-02] MEDS: CHOLECALCIFEROL 1,000 IU TAB PO SCH (09:44)
--- NOTE | 2018-09-02 10:26 | NUR ---
PATIENT'S FAMILY IS HERE AT BEDSIDE, UPDATED ON PATIENT'S CONDITION.
--- NOTE | 2018-09-02 11:24 | NUR ---
DR. WEBBER IS HERE TO SEE AND EXAMINE PATIENT, STATES NO DIALYSIS FOR TODAY WILL CHECK TOMORROW LABS TO SEE IF HE WILL NEED DIALYSIS FOR TOMORROW.
--- NOTE | 2018-09-02 11:56 | NUR ---
DR. BASHIR CALLED, UPDATED ON PATIENT'S CONDITION, STATES TO INCREASE IVF TO 70ML/HR AND KEEP PATIENT NPO FOR COLONOSCOPY FOR THE AFTERNOON.
--- NOTE | 2018-09-02 12:21 | NUR ---
DR. BALDERAS AT BEDSIDE, UPDATED PATIENT'S FAMILY ON PATIENT'S PLAN
--- NOTE | 2018-09-02 14:21 | NUR ---
09/02/18 RD INITIAL ASSESSMENT COMPLETED PLEASE REFER TO NUTRITION ASSESSMENT UNDER CARE ACTIVITY FOR ESTIMATED NUTRITIONAL NEEDS. 1. CONTINUE CLEAR LIQUID DIET WITH NECTAR THICK LIQUIDS TOLERATED 2. IF DIET IS NOT ADVANCED TO SOLID FOODS CONSIDER ADDING ORAL SUPPLEMENTS- ENSURE CLEAR TID AND PROSOURCE TID 3. RECOMMEND RENAL CCHO 60 GM DIET WITH NECTAR THICK LIQUIDS WHEN PT IS MEDICALLY STABLE TO ADVANCE DIET. 4. RD TO FOLLOW-UP 2-3 DAYS, HIGH RISK EDWIN JOHN RD
[2018-09-02] MEDS ORDERED: MIDAZOLAM 2 MG/2 ML VIAL ONE (14:58)
[2018-09-02] MEDS ORDERED: fentaNYL 0.05 MG/ML VIAL ONE (14:58)
[2018-09-02] MEDS ORDERED: diphenhydrAMINE 50 MG/ML VIAL ONE (14:58)
--- NOTE | 2018-09-02 15:25 | NUR ---
DR. BASHIR IS HERE, UPDATED ON PATIENT'S CONDITION. AT BEDSIDE WITH YAO BOYCE FOR COLONOSCOPY.
[2018-09-02] MEDS ORDERED: MIDAZOLAM 2 MG/2 ML VIAL IVP ONE (17:05)
[2018-09-02] MEDS ORDERED: fentaNYL 0.05 MG/ML VIAL IVP ONE (17:05)
[2018-09-02] MEDS ORDERED: GLUCAGON 1 MG VIAL ONE (17:39)
--- NOTE | 2018-09-02 19:30 | NUR ---
RECEIVED REPORT FROM DAYSHIFT NURSE FOR CONTINUITY OF CARE, PATIENT'S AT BEDSIDE. NO SIGNS OF DISTRESS AT THIS TIME.
--- NOTE | 2018-09-02 20:00 | NUR ---
RECEIVED PATIENT RESTING WELL IN BED, SITTING UPRIGHT WITH AT THE BEDSIDE. PATIENT'S EYES ARE CLOSED, ALERT & ORIENTED TO NAME, PATIENT CAN FOLLOW SIMPLE COMMANDS, OPENS EYES TO VOICE. PERRL, BRISK, 3MM. SKIN WARM & DRY, AFEBRILE. HR-85 BP- 142/70 O2-100%, RR- 13 ON NASAL CANNULA 2L. LUNG SOUNDS CLEAR, EQUAL CHEST RISE, UNLABORED BREATHING. S1 S2, PATIENT HAS CVP MONITORING-CVP 9, MONITOR WAS ZEROED. PATIENT HAS A LEFT SUBCLAVIAN CENTRAL LINE IN PLACE, TRIPLE LUMEN, NS RUNNING AT 10ML. CAP REFILL <3 SEC. BOWEL SOUNDS ACTIVE, ABDOMEN SOFT, NONTENDER. PATIENT HAS LEFT UPPER ARM FISTULA. SCROTAL EDEMA NOTED. SCD'S IN PLACE. BED IN LOWEST POSITION, BED LOCKED, CALL LIGHT WITHIN REACH.
--- NOTE | 2018-09-02 21:00 | NUR ---
PATIENT COMPLAINS OF PAIN IN SCROTAL AREA. EDEMA NOTED, TENDER, NO SIGNS OF DISCHARGE/FLUID/BLOOD.PATIENT REQUESTED PAIN MEDS, ACETAMINOPHEN GIVEN PRN. WILL CONTINUE TO MONITOR.
[2018-09-02] MEDS: INSULIN LISPRO SLIDING SCALE 100 UNITS/ML VIAL SUBQ PRN (21:07)
[2018-09-02] MEDS: CHLORHEXADINE GLUC 2% CLOTH TP SCH (21:15)
--- NOTE | 2018-09-02 21:45 | NUR ---
PATIENT RESTING WELL IN BED, NO SIGNS OF DISTRESS. FLACC 0. SAFETY CHECKS/ALARMS IN PLACE.
--- NOTE | 2018-09-02 21:48 | NUR ---
RECEIVED PT FROM PM NURSE JOSESITO, PT IS AT BED EYES CLOSED, PERRLA 3MM, A&O X3, FOLLOWS SIMPLE COMMANDS, EASILY GETS CONFUSED, BREATHING REGULARLY, UNLABORED, HEART RATE REGULAR, S1S2 PRESENT, CAP REFILL <3S, SCROTAL EDEMA 2+ NONPITTING, LUNG SOUNDS CLEAR THROUGHOUT, PT IS ON ROOM AIR, ABDOMEN SOFT, ROUND, NONDISTENDED, NONTENDER, BOWEL SOUNDS ACTIVE IN ALL QUADRANTS, BLADDER NONDISTENDED, NONTENDER, SKIN INTACT, WARM, DRY, APPROPRIATE TO ETHNICITY, GENERALIZED WEAKNESS, LEFT SUBCLAVIAN CENTRAL LINE TRIPLE LUMEN, RUNNING 10 ML/HR NS, LEFT FA AV FISTULA, PT HAS SCD IN PLACE, SIDERAILS UP X2, HOB 30 DEGREES, BED AT LOWEST POSITION, CALL LIGHT WITHIN REACH.
[2018-09-02] MEDS: NACL 0.9% 1,000 ML IV SCH (22:10)
--- NOTE | 2018-09-02 22:45 | NUR ---
ENDORSED CARE TO NIGHTSHIFT NURSE FOR CONTINUITY OF CARE. VITAL SIGNS WITHIN NORMAL LIMITS, FLACC 0. PATIENT RESTING COMFORTABLY IN BED.
--- NOTE | 2018-09-03 01:15 | NUR ---
PT AT BED RESTING, EYES CLOSED, BREATHING REGULARLY, VS WNL, HOB 30 DEGREES, SIDERAILS UP X2, BED AT LOWEST POSITION, CALL LIGHT WITHIN REACH.
--- NOTE | 2018-09-03 03:20 | NUR ---
PT AT BED RESTING, EYES CLOSED, BREATHING REGULARLY, VS WNL, HOB 30 DEGREES, SIDERAILS UP X2, BED AT LOWEST POSITION, CALL LIGHT WITHIN REACH.
[2018-09-03 04:00] VITALS: BP 121/49
[2018-09-03 06:10] LABS: CARBON DIOXIDE 25.6 mmol/L (21-32); CHLORIDE 107 mmol/L (98-107); GLUCOSE 144 mg/dL (74-106); POTASSIUM 3.6 mmol/L (3.5-5.1); SODIUM SERUM 142 mmol/L (136-145); UREA NITROGEN, BLOOD 16 mg/dL (7-18)
[2018-09-03 06:15] LABS: MAGNESIUM 2.4 mg/dL (1.8-2.4); PHOSPHORUS 3.7 mg/dL (2.5-4.9)
--- NOTE | 2018-09-03 06:35 | NUR ---
RECEIVED FROM ICU MALE PT. WITH DX. OF BLOODY STOOL. AWAKE AND ALERT. ABLE TO COMMUNICATE WELL WITH ME AND OTHER CARE GIVERS IN [place]. TELEMETRY MONITORING. CARE PLANS FOR THE NIGHT DISCUSSED WITH HIM. CALL LIGHT WITH IN REACH AND EXPLAINED USE FOR IT. "OK" GOOD AFFECT. SMILING. WITH LEFT SUBCLAVIAN CENTRAL LINE [address] AND WITH NS AT 10 ML/H. HEMODIALYSIS PT. WITH HD ACCESS TO LEFT FOREARM (AV FISTULA) DRESSING INTACT AND NO BLEEDING NOTED. SCD'S IN PLACE. BLOOD SUGAR PER FINGERSTICK 130 PER SPRING ASSEMBLER. NO INSULIN COVERAGE ADMINISTERED. PT. WITH HX. OF DEMENTIA AND FORGETFULNESS. WILL ENDORSE TO THE NEXT RN FOR CONTINUITY OF CARE.
[2018-09-03 06:37] LABS: BASOPHILS # (AUTO) 0.1 K/uL (0.00-0.22); BASOPHILS % (AUTO) 1.1 % (0.0-2.0); EOSINOPHILS # (AUTO) 0.5 K/uL (0-0.4); EOSINOPHILS % (AUTO) 3.7 % (0.0-4.0); LYMPHOCYTES # (AUTO) 0.8 K/uL (2.0-11.5); LYMPHOCYTES % (AUTO) 6.1 % (20.5-51.1); MEAN CORPUSCULAR HEMOGLOBIN 31 pg (27-31); MEAN CORPUSCULAR HGB CONC 31 g/dL (33-37); MONOCYTES # (AUTO) 0.9 K/uL (0.8-1.0); MONOCYTES % (AUTO) 7.4 % (1.7-9.3); NEUTROPHILS # (AUTO) 10.3 K/uL (1.8-7.7); NEUTROPHILS % (AUTO) 81.7 % (42.2-75.2); PLATELET COUNT (AUTO) 275 K/uL (140-450); RED BLOOD CELL COUNT(AUTO) 1.93 MIL/uL (4.20-6.10); RED CELL DISTRIBUTION WIDTH 17.5 % (11.6-13.7); WHITE BLOOD COUNT (AUTO) 12.6 K/uL (4.8-10.8)
[2018-09-03 06:39] LABS: CREATININE 5.3 mg/dL (0.7-1.3)
[2018-09-03 07:02] LABS: HEMATOCRIT 19.5 % (36-52); HEMOGLOBIN 6.1 g/dL (12.0-18.0)
[2018-09-03] MEDS: BLOOD GLUCOSE MONITORING 1 DEV DEV FS SCH ×4 (07:02→20:46)
--- NOTE | 2018-09-03 07:40 | NUR ---
ENDORSED TO THE AM RN FOR CONTINUITY OF CARE. PT. AWAKE AND ALERT. NO COMPLAINTS DONE.
--- NOTE | 2018-09-03 07:45 | NUR ---
RECEIVED BEDSIDE REPORT FROM CUSTOMER SOLUTIONS COORDINATOR RN. AOX3. ABLE TO COMMUNICATION NEEDS. DX GI BLEED AND ANEMIA. PER CUSTOMER SOLUTIONS COORDINATOR RN, NO BLOOD NOTED IN STOOLS OR BLEEDING ELSEWHERE. DENIES DIZZINESS, LIGHTHEADEDNESS. STATES HE FEELS "TIRED". IS SITTING UP IN BED, GETTING READY TO EAT BREAKFAST. LEFT SUBCLAVIAN CENTRAL LINE [address] AND WITH NS AT 10 ML/HR. HEMODIALYSIS PT WITH PLAN FOR HD TODAY. PER CUSTOMER SOLUTIONS COORDINATOR RN, NO ORDERS YET BECAUSE DR. WEBBER WANTS TO SEE AM LABS. WITH HD ACCESS TO LEFT FOREARM AV FISTULA. SCD'S IN PLACE. ALL SAFETY PRECAUTIONS IN PLACE, WILL CONTINUE TO MONITOR.
[2018-09-03 08:00] VITALS: BP 144/40
[2018-09-03] MEDS ORDERED: PIPE1PDS39 IV (08:18)
--- NOTE | 2018-09-03 08:19 | NUR ---
ASKED DR. DANIELLE ELLIS FOR HD ORDERS. INFORMED DR. ELLIS THAT PER CHANNEL LIP STIFFENER INSOLES RN, DR. WEBBER WANTED TO WAIT FOR AM LAB RESULTS. PER DR. ELLIS, CALL BACK AFTER 830AM TODAY TO OBTAIN ORDERS FROM DR. WEBBER.
[2018-09-03] MEDS ORDERED: METPCK PO (08:40)
[2018-09-03] MEDS ORDERED: LACT10SO11 PO (08:40)
[2018-09-03] MEDS ORDERED: Hydraguard TP (08:40)
[2018-09-03] MEDS ORDERED: PROC10I IV (08:40)
[2018-09-03] MEDS ORDERED: SENN-74 PO (08:40)
--- NOTE | 2018-09-03 08:45 | NUR ---
DR. AKBAR BRUSH CALLED, UPDATED HIM ON AM LABS. PER DR. WEBBER, HE WILL CALL PAYAL SAMAYOAMITTEN STITCHER FOR HD ORDER.
[2018-09-03] MEDS ORDERED: EPOETIN ALFA 10,000 UNITS/ML VIAL IV SCH (09:00)
--- NOTE | 2018-09-03 09:38 | NUR ---
PER PHARMACIST, HOLD EPOGEN, AND HAVE HD RN GIVE AFTER HD.
[2018-09-03] MEDS: BRIMONIDINE TARTRATE 0.2% OP 5 ML BTL OP SCH ×2 (09:42→20:47)
[2018-09-03] MEDS: PSYLLIUM 12.2 GM/PKT PO SCH (09:42)
[2018-09-03] MEDS: SODIUM FERRIC GLUCONATE 125 MG in NACL 0.9% 100 ML IV SCH ×3 (09:42→16:56)
[2018-09-03] MEDS: DORZOLAMIDE 2% OP 10 ML BTL OP SCH ×2 (09:42→20:47)
[2018-09-03] MEDS: POLYETHYLENE GLYCOL 17 GM/PKT PO SCH (09:42)
[2018-09-03] MEDS: PANTOPRAZOLE 40 MG TABEC PO SCH (09:43)
[2018-09-03] MEDS: LACTOBACILLUS RHAMNOSUS GG 1 EACH CAP PO SCH (09:43)
[2018-09-03] MEDS: VIT-B COMP/VIT-C/FOLIC ACID 1 TAB PO SCH (09:43)
[2018-09-03] MEDS: CHOLECALCIFEROL 1,000 IU TAB PO SCH (09:43)
[2018-09-03] MEDS: LACTULOSE 20 GM/30 ML UDC PO SCH (09:43)
--- NOTE | 2018-09-03 09:50 | NUR ---
PAYAL CORK MIXER STATES SHE RECEIVED HD ORDERS FROM DR. WEBBER. INFORMED PAYAL THAT THERE IS ACTIVE D/C ORDER, ASKED WHEN HD RN WILL BE HERE TO START HD. PER MOE, HD RN WILL BE HERE AT BEDSIDE BETWEEN [phone] TODAY.
--- NOTE | 2018-09-03 10:12 | NUR ---
CALLED [phone] [facility] () TO UPDATE ON PLAN TO D/C TO [facility] FOR PHYSICAL THERAPY AND IV ABX. LAYA (DAUGHTER) PICKED UP- UPDATED HER ON PLAN. HAVE ALREADY INFORMED DR. BALDERAS TO CALL [facility] () HAS QUESTIONS REGARDING D/C. INFORMED LAYA THAT DR. BALDERAS HAS BEEN NOTIFIED TO CALL .
--- NOTE | 2018-09-03 10:16 | NUR ---
PAGED ANYI [phone] TO INFORM OF NEW ORDER FOR PHYSICAL THERAPY SERVICE.
--- NOTE | 2018-09-03 11:19 | NUR ---
SENT PAGE TO DR. BALDERAS VIA [employer]apt. NOTIFIED THAT OF THE BELOW. BP VARYING GREATLY WITH EACH MEASUREMENT. BP MEASUREMENTS IN LOWER EXTREMITIES ONLY. PHYSICAL THERAPIST GOT BP MEASUREMENTS 87/25 AND THEN 111/25. I GOT BP 118/23 AND 98/19. I PLACED PT IN [place] AND GOT BP 150/39. PT IS AWAKE ALERT, ORIENTED X3. DENIES DIZZINESS/LIGHTHEADEDNESS. Addendum: 09/03/18 at 1123 by Trina Ortiz Meng, RN NS INFUSING AT 10 ML/HR.
[2018-09-03 12:00] VITALS: BP 149/37
[2018-09-03] MEDS: INSULIN LISPRO SLIDING SCALE 100 UNITS/ML VIAL SUBQ PRN ×3 (12:06→20:50)
--- NOTE | 2018-09-03 12:11 | NUR ---
BP NOW 149/37, MAP 69. PT REMAINS AOX3, DENIES DIZZINESS/ LIGHTHEADEDNESS. INTERACTING APPROPRIATELY WITH AND DAUGHTER AT BEDSIDE.
--- NOTE | 2018-09-03 13:37 | NUR ---
ARRANGED TRANSPORT WITH [facility] [phone] PLACED IT WILL CALL ,NOTIFIED CHARGE NURSE PALMIRA WILL CALL WHEN PT IS DONE WITH DIALYSIS. NOTIFIED [facility] THAT PATIENT WILL BE THERE AFTER HD . ROOM NUMBER WILL B 3B AND THE # TO GIVE REPORT [phone].
[2018-09-03] MEDS: HYDRAGUARD CREAM TP SCH (13:38)
--- NOTE | 2018-09-03 14:45 | NUR ---
DR. BALDERAS AT BEDSIDE TO DISCUSS D/C POC. ANSWERED ALL FAMILY'S QUESTIONS.
[2018-09-03 16:00] VITALS: BP 158/38
--- NOTE | 2018-09-03 16:05 | NUR ---
20,000 UNITS EPOGEN GIVEN TO HD RN TO GIVE IV AFTER HD.
--- NOTE | 2018-09-03 17:02 | NUR ---
SCHEDULED MEDS ADMINISTERED. HD ONGOING WITH HD RN MONITORING AT BEDSIDE.
--- NOTE | 2018-09-03 19:12 | NUR ---
ENDORSED POC TO WAYBILL CLERK RN. HD RN AT BEDSIDE. PT IN STABLE CONDITION.
--- NOTE | 2018-09-03 19:13 | NUR ---
RECEIVED REPORT FROM DAY SHIFT NURSE SHAWNA-RN AT BEDSIDE. PT RESTING IN BED, AOX4, ON ROOM AIR WITH LEFT FISTULA AND LEFT SUBCLAVICULAR TRIPLE LUMEN CATHETER. PT CURRENTLY RECEIVING HEMODIALYSIS. SKIN WITH SCROTAL SWELLING. DISCUSSED PLAN OF CARE AND PT VERBALIZED UNDERSTANDING. NO S/S OF RESPIRATORY DISTRESS OR DISCOMFORT NOTED AT THIS TIME. BED IN LOWEST POSITION, BED BREAKS ON, BOTH SIDE RAILS UP AND FALL PRECAUTIONS IN PLACE. BEDSIDE TABLE AND CALL LIGHT ARE WITHIN REACH. WILL CONTINUE TO MONITOR.
--- NOTE | 2018-09-03 19:39 | NUR ---
REPORT GIVEN TO MARYANNE SAMAYOA AT [facility], [place].
[2018-09-03 20:00] VITALS: BP 153/40
--- NOTE | 2018-09-03 20:00 | NUR ---
VITAL SIGNS TAKEN AND TOLERATED WELL. BLOOD GLUCOSE 189- WILL ADMINISTER INSULIN COVERAGE. HEMODIALYSIS HAS COMPLETED. NO S/S OF RESPIRATORY DISTRESS OR DISCOMFORT NOTED AT THIS TIME. WILL CONTINUE TO MONITOR.
[2018-09-03] MEDS: SENNA 8.6 MG TAB PO SCH (20:47)
[2018-09-03] MEDS: MEMANTINE 10 MG TAB PO SCH (20:47)
--- NOTE | 2018-09-03 20:50 | NUR ---
SCHEDULED MEDICATION AND INSULIN COVERAGE GIVEN AND TOLERATED WELL. NO S/S OF RESPIRATORY DISTRESS OR DISCOMFORT NOTED AT THIS TIME. WILL CONTINUE TO MONITOR.
--- NOTE | 2018-09-03 21:26 | NUR ---
SCHEDULED CHLORHEXADINE CLOTH APPLIED AND TOLERATED WELL. NO S/S OF RESPIRATORY DISTRESS OR DISCOMFORT NOTED AT THIS TIME. WILL CONTINUE TO MONITOR.
[2018-09-03] MEDS: CHLORHEXADINE GLUC 2% CLOTH TP SCH (21:28)
--- NOTE | 2018-09-03 22:00 | NUR ---
PT SLEEPING IN BED. NO S/S OF RESPIRATORY DISTRESS OR DISCOMFORT NOTED AT THIS TIME. WILL CONTINUE TO MONITOR.
[2018-09-03] MEDS: NACL 0.9% 1,000 ML IV SCH (22:10)
--- NOTE | 2018-09-03 22:32 | NUR ---
CALLED [facility] REGARDING PT GOING TO BE TRANSPORTED TO FACILITY AT MIDNIGHT, WAS NOTIFIED THAT THEY DON'T HAVE ANY MANAGER INTENSIVE CARE PAST 1999. NOTIFIED NURSING MARINE INSULATOR.
[2018-09-04] VITALS: BP 136/28
--- NOTE | 2018-09-04 | NUR ---
VITAL SIGNS TAKEN AND TOLERATED WELL. NO S/S OF RESPIRATORY DISTRESS OR DISCOMFORT NOTED AT THIS TIME. WILL CONTINUE TO MONITOR.
--- NOTE | 2018-09-04 00:29 | NUR ---
SPOKE WITH JOSESITO FROM [facility] REGARDING TRANSPORT DELAY TO 10AM.
[2018-09-04] MEDS: HYDRAGUARD CREAM TP SCH ×2 (01:00→01:03)
--- NOTE | 2018-09-04 02:00 | NUR ---
PT SLEEPING IN BED. NO S/S OF RESPIRATORY DISTRESS OR DISCOMFORT NOTED AT THIS TIME. WILL CONTINUE TO MONITOR.
[2018-09-04 04:00] VITALS: BP 153/42
--- NOTE | 2018-09-04 04:00 | NUR ---
VITAL SIGNS TAKEN AND TOLERATED WELL. NO S/S OF RESPIRATORY DISTRESS OR DISCOMFORT NOTED AT THIS TIME. WILL CONTINUE TO MONITOR.
--- NOTE | 2018-09-04 06:00 | NUR ---
BLOOD GLUCOSE 196- WILL ADMINISTER INSULIN COVERAGE. NO S/S OF RESPIRATORY DISTRESS OR DISCOMFORT NOTED AT THIS TIME. WILL CONTINUE TO MONITOR.
[2018-09-04] MEDS: BLOOD GLUCOSE MONITORING 1 DEV DEV FS SCH (06:36)
[2018-09-04] MEDS: INSULIN LISPRO SLIDING SCALE 100 UNITS/ML VIAL SUBQ PRN (06:39)
--- NOTE | 2018-09-04 06:39 | NUR ---
INSULIN COVERAGE GIVEN AND TOLERATED WELL. NO S/S OF RESPIRATORY DISTRESS OR DISCOMFORT NOTED AT THIS TIME. WILL CONTINUE TO MONITOR.
--- NOTE | 2018-09-04 07:25 | NUR ---
Received bedside report from pm nurse Mariah. Pt in bed, awake, verbally responsive, no signs of distress, no c/o discomfort. Call light within reach.
[2018-09-04 08:00] VITALS: BP 153/66
[2018-09-04] MEDS: SODIUM FERRIC GLUCONATE 125 MG in NACL 0.9% 100 ML IV SCH (09:30)
[2018-09-04] MEDS: VIT-B COMP/VIT-C/FOLIC ACID 1 TAB PO SCH (09:31)
[2018-09-04] MEDS: BRIMONIDINE TARTRATE 0.2% OP 5 ML BTL OP SCH (09:31)
[2018-09-04] MEDS: PANTOPRAZOLE 40 MG TABEC PO SCH (09:31)
[2018-09-04] MEDS: LACTULOSE 20 GM/30 ML UDC PO SCH (09:31)
[2018-09-04] MEDS: DORZOLAMIDE 2% OP 10 ML BTL OP SCH (09:31)
[2018-09-04] MEDS: LACTOBACILLUS RHAMNOSUS GG 1 EACH CAP PO SCH (09:31)
[2018-09-04] MEDS: CHOLECALCIFEROL 1,000 IU TAB PO SCH (09:31)
[2018-09-04] MEDS: POLYETHYLENE GLYCOL 17 GM/PKT PO SCH (09:32)
[2018-09-04] MEDS: PSYLLIUM 12.2 GM/PKT PO SCH (09:32)
--- NOTE | 2018-09-04 11:30 | NUR ---
Pt discharged at this time to [facility] via [facility] with [facility]. Daughter & son-in-law at bedside upon pt's departure & are aware of transfer. All belongings with pt. Left subclavian 3-lumen central line in place, patent & asymptomatic.
== END 2018-09-04 11:30 | DRG 377 ==
LOC: MED 09:21 → MMU 12:33 → MTU 14:59 → MIC 09-02 07:47 → MTU 09-03 06:10
PROVIDERS: ADMIT General Practice; ATTEND General Practice
PROC: 5A1D70Z Performance of Urinary Filtration, Intermittent, Less than 6 Hours Per Day (ICD-10-PCS; 2018-08-29)
PROC: 02HV33Z Insertion of Infusion Device into Superior Vena Cava, Percutaneous Approach (ICD-10-PCS; principal; 2018-08-31)
PROC: 5A1D70Z Performance of Urinary Filtration, Intermittent, Less than 6 Hours Per Day (ICD-10-PCS; 2018-09-01)
PROC: 0DBL8ZZ Excision of Transverse Colon, Via Natural or Artificial Opening Endoscopic (ICD-10-PCS; 2018-09-02)
PROC: 0DBN8ZX Excision of Sigmoid Colon, Via Natural or Artificial Opening Endoscopic, Diagnostic (ICD-10-PCS; 2018-09-02)
PROC: 0DBL8ZX Excision of Transverse Colon, Via Natural or Artificial Opening Endoscopic, Diagnostic (ICD-10-PCS; 2018-09-02)
PROC: 0DBN8ZZ Excision of Sigmoid Colon, Via Natural or Artificial Opening Endoscopic (ICD-10-PCS; 2018-09-02 15:15)
PROC: 5A1D70Z Performance of Urinary Filtration, Intermittent, Less than 6 Hours Per Day (ICD-10-PCS; 2018-09-03)
DX: K57.91 Diverticulosis of intestine, part unspecified, without perforation or abscess with bleeding (principal); J69.0 Pneumonitis due to inhalation of food and vomit; G93.41 Metabolic encephalopathy; N17.0 Acute kidney failure with tubular necrosis; E43 Unspecified severe protein-calorie malnutrition; N18.6 End stage renal disease; D62 Acute posthemorrhagic anemia; I12.0 Hypertensive chronic kidney disease with stage 5 chronic kidney disease or end stage renal disease; J98.11 Atelectasis; I82.611 Acute embolism and thrombosis of superficial veins of right upper extremity; Z68.21 Body mass index [BMI] 21.0-21.9, adult; D64.9 Anemia, unspecified; E11.22 Type 2 diabetes mellitus with diabetic chronic kidney disease; F01.50 Vascular dementia, unspecified severity, without behavioral disturbance, psychotic disturbance, mood disturbance, and anxiety; H40.9 Unspecified glaucoma; I25.10 Atherosclerotic heart disease of native coronary artery without angina pectoris; K21.9 Gastro-esophageal reflux disease without esophagitis; K40.20 Bilateral inguinal hernia, without obstruction or gangrene, not specified as recurrent; G47.00 Insomnia, unspecified; K57.90 Diverticulosis of intestine, part unspecified, without perforation or abscess without bleeding; E02 Subclinical iodine-deficiency hypothyroidism; K64.8 Other hemorrhoids; Z85.46 Personal history of malignant neoplasm of prostate; Z99.2 Dependence on renal dialysis; Z88.8 Allergy status to other drugs, medicaments and biological substances
CPT/HCPCS: 36415; 71045; 74018; 80048; 80053; 81001; 82248; 82550; 82607; 82746; 82948; 83036; 83540; 83605; 83690; 83735; 83880; 84100; 84443; 84484; 85025; 85045; 85610; 85730; 86886; 86900; 86901; 87040; 87081; 87086; 88305; 90935; 92610; 93005; 93970; 96365; 97110; 97116; 97161-GP; 97530; 99291; J0692; J0885; J1200; J1610; J1815; J2250; J2543; J2916; J3010; J7030; Q0092

== ENCOUNTER 2019-03-15 20:24 | Inpatient (IN) | payer OTHER ==
[~2019-03-15] VITALS: Ht 167.6 cm; Wt 54.9 kg
[~2019-03-15 20:24] MED LIST changes: +ACET-2619 PO; +ALPOS OP; +AMLO5TAB PO; -ASPI81TA3 PO; +DORZ10DR2 OP; +FERR325E14 PO; -GLIPIZIDE; +HUM SUBQ; +Hydraguard TP; +LACT10SO11 PO; +MELA3TAB56 PO; +MEMA10TA20 PO; -METOPROLOL; +METPCK PO; +NEP PO; +PANT40EC28 PO; +PIPE1PDS39 IV; +PROC10I IV; +SENN-74 PO; +SEVE800T6 PO; +VITD1000 PO; -[UNRECOGNIZED DRUG - OTHER]
--- NOTE | 2019-03-15 20:24 | NUR ---
PT RENÉE ALS. TAKEN TO BED 1
--- NOTE | 2019-03-15 20:25 | NUR ---
74 Y/O MLAE C/O LOW BLOOD SUGAR/ ALOC X 1930 TODAY. BS WAS [address] RECHKECKED BLOOD SUGAR IT IS NOW 142. D50 WAS GIVEN BY PARAMEDICS ON ROUTE. VSS. GCS 15. LUNG SOUNDS CLEAR ALL THROUGHOUT. PRODUCTIVE COUGH PRESENT. FAMILY MEMBER STATES HES BEEN HAVING A CHANGE OF APPETITE X 2DAYS. DIAYLSIS PORT LOCATED ON LEFT UPPER ARM. ALLERGIES: PENCILLIN. PMH: DEMENITA, DM, HTN, PROSTATE CANCER, GLUACOMA, ABD HERNIA, DIALYSIS, STROKE.
[2019-03-15 20:32] VITALS: BP 134/61
--- NOTE | 2019-03-15 22:01 | NUR ---
BS 71
[2019-03-15] MEDS ORDERED: DEXTROSE 10% 500 ML IV SCH (22:05)
[2019-03-15] MEDS ORDERED: DEXTROSE 10% 500 ML IV ONE (22:24)
[2019-03-15 22:43] LABS: BASOPHILS % (AUTO) 0.4 % (0.0-2.0); EOSINOPHILS # (AUTO) 0.2 K/uL (0-0.4); EOSINOPHILS % (AUTO) 1.5 % (0.0-4.0); HEMATOCRIT 34.5 % (36-52); HEMOGLOBIN 11.3 g/dL (12.0-18.0); LYMPHOCYTES # (AUTO) 1.1 K/uL (2.0-11.5); LYMPHOCYTES % (AUTO) 11.2 % (20.5-51.1); MEAN CORPUSCULAR HEMOGLOBIN 30 pg (27-31); MEAN CORPUSCULAR HGB CONC 33 g/dL (33-37); MONOCYTES # (AUTO) 1.1 K/uL (0.8-1.0); MONOCYTES % (AUTO) 10.7 % (1.7-9.3); NEUTROPHILS # (AUTO) 7.5 K/uL (1.8-7.7); NEUTROPHILS % (AUTO) 76.2 % (42.2-75.2); PLATELET COUNT (AUTO) 175 K/uL (140-450); RED BLOOD CELL COUNT(AUTO) 3.75 MIL/uL (4.20-6.10); RED CELL DISTRIBUTION WIDTH 15.8 % (11.6-13.7); WHITE BLOOD COUNT (AUTO) 9.9 K/uL (4.8-10.8)
[2019-03-15 23:10] LABS: ALBUMIN 2.9 g/dL (3.4-5.0); ANION GAP 12.4 (8-16); ASPARTATE AMINOTRANSFERASE 21 U/L (15-37); CARBON DIOXIDE 30.6 mmol/L (21-32); CHLORIDE 97 mmol/L (98-107); GLUCOSE 58 mg/dL (74-106); SODIUM SERUM 135 mmol/L (136-145); TOTAL BILIRUBIN 0.5 mg/dL (0.0-1.0); UREA NITROGEN, BLOOD 47 mg/dL (7-18)
[2019-03-15 23:13] LABS: CREATININE 5.7 mg/dL (0.7-1.3)
[2019-03-16] MEDS ORDERED: DOCUSATE SODIUM 100 MG GELCAP PO PRN (01:45)
[2019-03-16] MEDS ORDERED: ONDANSETRON 4 MG/2 ML VIAL IM/IVP PRN (01:45)
[2019-03-16] MEDS ORDERED: DEXT 5% /NACL 0.9% 1,000 ML IV SCH (01:45)
[2019-03-16] MEDS ORDERED: ACETAMINOPHEN 325 MG TAB PO PRN (01:45)
[2019-03-16] MEDS ORDERED: DEXTROSE 10% 1,000 ML IV SCH ×2 (02:10→02:15)
[2019-03-16] MEDS ORDERED: GLUCAGON 1 MG VIAL IVP ONE (02:15)
[2019-03-16] MEDS ORDERED: INSULIN LISPRO SLIDING SCALE 100 UNITS/ML VIAL SUBQ PRN (02:15)
[2019-03-16 02:27] LABS: PROTHROMBIN TIME 10.4 secs (10.8-13.4)
--- NOTE | 2019-03-16 03:10 | NUR ---
Patient will be admitted to care of DR. CLOUD. Admited to ICU. Will go to room 3. Belongings list completed. Report to YAO CONROY.
[2019-03-16 03:15] VITALS: BP 135/68
[2019-03-16] MEDS: BLOOD GLUCOSE MONITORING 1 DEV DEV FS SCH ×13 (03:15→20:39)
--- NOTE | 2019-03-16 03:15 | NUR ---
REPORT RECEIVED FROM ED NURSE AT BEDSIDE. PT IN STABLE CONDITION. AAOX1-2. INTRODUCED SELF TO PT. NO COMPLAINTS OF PAIN. NO SOB. AFEBRILE. PT IS ON BEDREST. PT HAS L AV FISTULA. IV SITE R HAND 22G RUNNING D10W@50ML/HR PATENT AND INTACT. SKIN WARM, DRY, AND NOT INTACT DUE TO REDNESS ON THE RIGHT TOE AND L TOENAIL MISSING. BED LOCKED IN LOW POSITION. CALL COLLINS WITHIN REACH. SAFETY PRECAUTION IN PLACE. ALL NEEDS MET AT THIS TIME.
[2019-03-16] MEDS: DEXTROSE 50% 50 ML SYR IVP PRN ×2 (03:18→07:11)
--- NOTE | 2019-03-16 03:20 | NUR ---
BS 42. D50 GIVEN. Addendum: 03/16/19 at 0433 by Donis Umaña RN JUICE GIVEN.
--- NOTE | 2019-03-16 03:30 | NUR ---
RECHECKED BS 179.
[2019-03-16 03:45] LABS: MAGNESIUM 1.9 mg/dL (1.8-2.4); PHOSPHORUS 5.2 mg/dL (2.5-4.9); THYROID STIMULATING HORMONE 1.47 uIU/mL (0.34-3.74)
[2019-03-16 04:00] VITALS: BP 140/62
--- NOTE | 2019-03-16 04:23 | NUR ---
BS 128. NO INSULIN COVERAGE NEEDED.
--- NOTE | 2019-03-16 05:15 | NUR ---
PTS EYES CLOSE.ON ROOM AIR.NO SOB NOTED.02SAT 97%.PERIPHERAL IV INTACT INFUSING ORDERED IVF. BS CHECKED 90.NO INSULIN COVERAGE REQUIRED.
--- NOTE | 2019-03-16 07:13 | NUR ---
PT LETHARGIC; BLOOD SUGAR CHECKED 54; D50 1 AMP GIVEN ORDERED. REPORT GIVEN TO YAO STRATTON
[2019-03-16 07:21] LABS: CHOL/HDL RATIO 4.2 (1-4.5)
[2019-03-16] MEDS ORDERED: BLOOD GLUCOSE MONITORING 1 DEV DEV FS SCH ×2 (07:30→16:00)
--- NOTE | 2019-03-16 07:30 | NUR ---
OPENS EYES WHEN NAME IS CALLED. DOES NOT FOLLOW COMMANDS. TRIES TO SPEAK BUT INCOMPREHENSIBLE. IV D10 W INFUSING VIA RT. HAND AT 50 ML/HR. MOVE EXT X 4. SEVERE WEAKNESS NOTED. LUNGS FAIRLY CLEAR, NO SOB NOTE. 02 SAT 96% ON RA. RECTAL BAG APPLIED OVER PENILE ARE TO COLLECT URINE FOR DRUG SCREEN AND UA
--- NOTE | 2019-03-16 07:40 | NUR ---
GOOD BRUIT HEARD OVER LEFT UPPER ARM AV SHUNT.
[2019-03-16 08:00] VITALS: BP 101/51
[2019-03-16] MEDS: SEVELAMER CARBONATE 800 MG TAB PO SCH ×4 (08:00→17:20)
--- NOTE | 2019-03-16 08:00 | NUR ---
UNABLE TO GIVE MEDS. PT. NOT AWAKE ENOUGH TO SWALLOW PILLS. DR. VALADEZ AWARE.
--- NOTE | 2019-03-16 08:00 | NUR ---
TRIED TO FEED PT. BREAKFAST. KEPT EYES CLOSED BUT OPENED MOUTH, TRIED TO GIVE PT. APPLE SAUCE. TOOK 2 TSPS SLOWLY WITHOUT PROBLEMS. UNABLE TO FEED ANYMORE. STOPPED SWALLOWING.
--- NOTE | 2019-03-16 08:05 | NUR ---
BS CHECK DONE. 146. AWARE.
--- NOTE | 2019-03-16 08:10 | NUR ---
PT'S GE CALLED. UPDATED ON PT'S CONDITION.
--- NOTE | 2019-03-16 08:15 | NUR ---
NOTIFIED DR. VALADEZ UNABLE TO FEED PT.
--- NOTE | 2019-03-16 08:30 | NUR ---
SCDS APPLIED TO BOTH LEGS.
--- NOTE | 2019-03-16 08:41 | NUR ---
PATIENT HAS BEEN SCREENED AND CATEGORIZED HIGH NUTRITION RISK. PATIENT WILL BE SEEN WITHIN 1-2 DAYS OF ADMISSION. 03/16/19-03/17/[address]
[2019-03-16] MEDS: EPOETIN ALFA 10,000 UNITS/ML VIAL IV SCH ×3 (08:51→15:31)
[2019-03-16] MEDS: PSYLLIUM 12.2 GM/PKT PO SCH (08:54)
[2019-03-16] MEDS: VIT-B COMP/VIT-C/FOLIC ACID 1 TAB PO SCH (08:55)
[2019-03-16] MEDS: MEMANTINE 10 MG TAB PO SCH ×2 (08:55→20:30)
[2019-03-16] MEDS: PANTOPRAZOLE 40 MG TABEC PO SCH (08:56)
[2019-03-16] MEDS: amLODIPine 5 MG TAB PO SCH (08:56)
--- NOTE | 2019-03-16 08:58 | NUR ---
0900 MEDS HELD. PT. LETHARGIC UNABLE TO SWALLOW AT THIS TIME. DR VALENTE AWARE.
--- NOTE | 2019-03-16 08:59 | NUR ---
DISCHARGE PLANNING: A 73 Y/O MALE PATIENT FROM HOME, WHO CAME IN DUE TO ALOC. PAST MEDICAL HISTORY INCLUDE DEMENTIA, END STAGE RENAL DISEASE ON HD , CORONARY DISEASE, MULTIPLE CVA, DM AND PROSTATE CA. INITIAL DIAGNOSIS OF HYPOGLYCEMIA. CURRENT LABS INCLUDE WBC 9.9, H/H 11.3/34.5, NA/K 135/5.0, BUN/CREA 47/5.7 AND ALB 2.9. MRSA NARES STILL PENDING. NEPHRO CONSULT WITH DR. RENDON. DC PLANNING TO GO BACK HOME ONCE STABLE. Addendum: 03/17/19 at 1104 by Rashmi Olvera CM DC PLANNING: SEEN BY J2EE ANDROID DEVELOPER, HD SCHEDULE TOMORROW BLOOD SUGAR WNL OFF D 10 IV, CONTINUED HOME MEDS. DC PLAN TO GO HOME WITH FAMILY AND CONTINUE HEMO DIALYSIS MWF AT [facility] IN [place]. CM TO FOLLOW.
[2019-03-16] MEDS ORDERED: DORZOLAMIDE HCL OP SCH (09:00)
[2019-03-16] MEDS ORDERED: BRIMONIDINE TARTRATE 0.2% OP 5 ML BTL OP SCH (09:00)
--- NOTE | 2019-03-16 09:00 | NUR ---
JUST OPENS EYES WHEN STIMULATED. GOES BACK TO SLEEP AFTER.
--- NOTE | 2019-03-16 09:15 | NUR ---
HEMODIALYSIS STARTED AT BEDSIDE.
--- NOTE | 2019-03-16 11:00 | NUR ---
WOUND CARE EVALUATION NOTES: REASON FOR EVALUATION: LEFT FOOT DIABETIC, MISSING TOE NAIL WOUND ASSESSMENT COMPLETED ON THIS 73 Y/O MALE ADMITTED TO ICU FOR HYPOGLYCEMIA. PATIENT IS FROM HOME. PAST MEDICAL HISTORY INCLUDES ESRD ON HEMODIALYSIS, DM, DEMENTIA, CAD, MULTIPLE CVA, GERD, HTN, PROSTATE CA, AND GLAUCOMA. ALL ABOVE INFORMATION WAS OBTAINED FROM THE ADMISSION H&P. LABS ARE WBC:9.9, H/H: 11.3/34.5, GLUCOSE:58, ALBUMIN:2.9. PATIENT IS DROWSY, AROUSABLE BY VOICE AND TOUCH. SKIN IS WARM TO TOUCH. HAS LEFT UPPER ARM AV FISTULA. ORAL MUCOSAL MEMBRANES DRY. REQUIRES ASSISTANCE WITH TURNING. PLAN OF CARE AND PRESSURE PREVENTATIVE MEASURES DISCUSSED WITH PATIENT AND PRIMARY RN. REINFORCEMENT NEEDED. PATIENT ADMITTED WITH LEFT FOOT BIG TOENAIL MISSING AND ALL OTHER LEFT FOOT TOENAILS ARE YELLOW, AND THICKENED. COMORBIDITIES RELATED TO IMPAIRED WOUND HEALING SUCH DECREASED MOBILITY, LOW ALBUMIN LEVEL, AND HISTORY OF DM. INTEGUMENTARY: - LEFT FOOT BIG TOENAIL IS MISSING, MEASURING 1 X 1 WITH SUPERFICIAL DEPTH. ALL OTHER LEFT FOOT TOENAILS ARE YELLOW AND THICKENED. WOUND BED IS PINK, NO ODOR, NO DRAINAGE. APPEARS TO BE A FUNGAL INFECTION PATIENT HAS HISTORY OF FUNGAL INFECTION ON TOENAILS AND DELAYED WOUND HEALING FROM DM. - RIGHT TOES (ALL) HAS BLANCHABLE REDNESS. LUPE-WOUND SKIN PINK, INTACT. NO ODOR, NO DRAINAGE. RECOMMENDATIONS: - LEFT FOOT BIG TOENAIL MISSING - CLEANSE WITH NS, PAT DRY, PAINT WOUND BED AND LUPE-WOUND WITH BETADINE SWABS, AND LEAVE OPEN TO AIR DAILY AND PRN IF SOILED. - RIGHT TOES BLANCHABLE REDNESS - KEEP TOES CLEAN AND DRY AT ALL TIMES, ELEVATE LEGS WITH PILLOWS WHEN IN BED. - TURN AND REPOSITION PATIENT Q2H TO OFFLOAD SACRALCOCCYX. - ASSESS AND MONITOR SKIN CONDITION DURING POSITION CHANGES. - KEEP SKIN DRY AND CLEAN AT ALL TIMES. - RD CONSULT RECOMMENDATIONS DISCUSSED WITH PRIMARY RN AND DR. VALENTE WILL FOLLOW-UP PAITENT Q7-10 DAYS AND PRN. PLEASE CONTACT WOUND CARE NURSE FOR ANY CONCERNS AND CHANGES IN WOUND CONDITION.
[2019-03-16] MEDS ORDERED: NACL 0.9% 1,000 ML IV ONE (11:30)
[2019-03-16 12:00] VITALS: BP 114/52
--- NOTE | 2019-03-16 12:15 | NUR ---
BS 126. PT MORE AWAKE. OPENS EYES TO NAME. TRIES TO TALK WHEN SPOKEN TOO. HEMODIALYSIS IN PROGRESS. DR. VALENTE INFORMED OF BS READINGS. WILL CHANGE ACCUCHECK TO Q4H.
--- NOTE | 2019-03-16 13:20 | NUR ---
HEMODIALYSIS COMPLETED. (-2.2L)
--- NOTE | 2019-03-16 13:24 | NUR ---
MORE AWAKE AND RESPONSIVE. ANSWERS SIMPLE QUESTIONS APPROPRIATELY. FOLLOWS COMMANDS. BLANCHARD BUT WEAKLY.
--- NOTE | 2019-03-16 13:35 | NUR ---
AT BEDSIDE. BROUGHT PT'S EYE DROPS. GIVEN TO PHARMACY.
--- NOTE | 2019-03-16 13:40 | NUR ---
FED LUNCH BY . NO DIFF. IN SWALLOWING SOFT FOOD AND DRINKING FLUIDS. WITH DIFFICULTY CHEWING MEAT. WILL BRING DENTURES LATER.
[2019-03-16] MEDS ORDERED: DEXT 5% / NACL 0.9% 500 ML IV SCH (14:30)
--- NOTE | 2019-03-16 15:06 | NUR ---
03/16/19 RD INITIAL ASSESSMENT COMPLETED PLEASE REFER TO NUTRITION ASSESSMENT UNDER CARE ACTIVITY FOR ESTIMATED NUTRITIONAL NEEDS. 1. CONTINUE MECHANICAL SOFT RENAL AND CCHO 60GM DIET TOLERATED 2. ENCOURAGE PO INTAKE AND PROVIDE FEEDING ASSISTANCE IF NEEDED 3. RD TO FOLLOW-UP 2-3 DAYS, HIGH RISK EDWIN JOHN, RD
[2019-03-16] MEDS: DEXT 5% /NACL 0.9% 1,000 ML IV SCH (15:30)
--- NOTE | 2019-03-16 15:30 | NUR ---
IV D10W DC'D. D5 0.9% NS STARTED AT 30 ML/HR.
[2019-03-16 16:00] VITALS: BP 101/46
[2019-03-16 16:01] LABS: BASOPHILS % (AUTO) 0.2 % (0.0-2.0); EOSINOPHILS # (AUTO) 0.2 K/uL (0-0.4); EOSINOPHILS % (AUTO) 2.9 % (0.0-4.0); HEMATOCRIT 35.5 % (36-52); HEMOGLOBIN 11.4 g/dL (12.0-18.0); LYMPHOCYTES # (AUTO) 0.8 K/uL (2.0-11.5); LYMPHOCYTES % (AUTO) 11.2 % (20.5-51.1); MEAN CORPUSCULAR HEMOGLOBIN 30 pg (27-31); MEAN CORPUSCULAR HGB CONC 32 g/dL (33-37); MEAN CORPUSCULAR VOLUME 93.1 fL (80-94); MONOCYTES % (AUTO) 13.6 % (1.7-9.3); NEUTROPHILS # (AUTO) 5.4 K/uL (1.8-7.7); NEUTROPHILS % (AUTO) 72.1 % (42.2-75.2); PLATELET COUNT (AUTO) 150 K/uL (140-450); RED BLOOD CELL COUNT(AUTO) 3.82 MIL/uL (4.20-6.10); RED CELL DISTRIBUTION WIDTH 15.3 % (11.6-13.7); WHITE BLOOD COUNT (AUTO) 7.5 K/uL (4.8-10.8)
--- NOTE | 2019-03-16 16:05 | NUR ---
DR. RENDON HERE TO SEE AND EXAMINE PT. SPOKE TO PT'S .
[2019-03-16 16:29] LABS: ALBUMIN 2.7 g/dL (3.4-5.0); ANION GAP 12.2 (8-16); ASPARTATE AMINOTRANSFERASE 25 U/L (15-37); CARBON DIOXIDE 28.5 mmol/L (21-32); CHLORIDE 99 mmol/L (98-107); CREATININE 3.2 mg/dL (0.7-1.3); GLUCOSE 160 mg/dL (74-106); POTASSIUM 3.7 mmol/L (3.5-5.1); SODIUM SERUM 136 mmol/L (136-145); TOTAL BILIRUBIN 0.6 mg/dL (0.0-1.0); UREA NITROGEN, BLOOD 19 mg/dL (7-18)
--- NOTE | 2019-03-16 16:45 | NUR ---
INCONTINENT OF SMALL AMT OF PASTY BROWNISH STOOLS. PERINEAL CARE DONE. BATH GIVEN. HEEL PROTECTORS APPLIED TO BOTH FEET.
--- NOTE | 2019-03-16 18:00 | NUR ---
HOB ELEVATED . FED DINNER. ATE 75% WITHOUT ANY DIFFICULTY.
--- NOTE | 2019-03-16 18:30 | NUR ---
NO URINE OUTPUT. UNABLE TO COLLECT URINE SPECIMEN. DR. VALENTE AWARE.
[2019-03-16 20:00] VITALS: BP 133/56
[2019-03-16] MEDS: MELATONIN 3 MG TAB PO SCH (20:30)
[2019-03-16] MEDS: SENNA 8.6 MG TAB PO SCH (20:30)
[2019-03-16] MEDS: EYE OP SCH (20:31)
[2019-03-16] MEDS: DORZOLAMIDE HCL OP SCH (20:31)
[2019-03-16] MEDS: [UNRECOGNIZED DRUG - OTHER] OP SCH (20:31)
[2019-03-16] MEDS: BRIMONIDINE TART OP SCH (20:31)
--- NOTE | 2019-03-16 20:38 | NUR ---
BLOOD SUGAR CHECKED PER MD ORDERS. BS RESULT 153. PER SLIDING SCALE, GIVE [address] VALADEZ TO CONFIRM. STATES TO HOLD INSULIN 2 UNITS AT THIS TIME. WILL CONTINUE TO MONITOR.
--- NOTE | 2019-03-16 20:54 | NUR ---
PATIENTS MIREYA CALLED. CONFIRMED BY FACE SHEET. UPDATE GIVEN. NOTIFIED HER THAT PATIENT TOLERATED MEDICATION ADMINISTRATION WELL. PATIENT WATCHING TV AND NODDING OFF TO SLEEP. STATED THAT SHE WILL BE BY IN THE LATER MORNING. PATIENT SHOWING NO SOB OR S/S OF DISTRESS. ASKED IF NEEDED ANYTHING ELSE AT THIS TIME PATIENT REPLIED "NO IM FINE" ID LIKE THE TV ON PLEASE. WILL CONTINUE TO MONITOR.
--- NOTE | 2019-03-16 21:00 | NUR ---
CHANGE OF SHIFT REPORT GIVEN AT NURSES STATION BY DAY CHARGE NURSE VIRAL. STATES PATIENT CAME IN FOR HYPOGLYCEMIA. HAS LONG HX (SEE ADMITTING NOTES). PATIENT IS ALERT TO NAME, , WIFES NAME, PLACE WHEN ASKED. ABLE TO OBEY COMMANDS,ABLE TO MAKE NEEDS KNOWN, CLEAR AND SOFT SPOKEN LITHUANIAN SPOKEN. PERRL NOTED BILATERALLY. PUPIL SIZE 2. PATIENT FOLLOWS NURSE WHEN IN PATIENTS ROOM. PATIENT ON ROOM AIR. CLEAR LUNG SOUNDS. RESPIRATIONS BILATERAL AND SYMMETRICAL. PER DAY NURSE, CCHO /RENAL DIET WITH GROUND MEAT. DAY SHIFT STATES FAMILY NOTIFIED HER THAT PATIENT STILL URINATES AT TIMES. RECTAL BAG WAS PLACED OVER GENITALS TO TRY AND CAPTURE URINE IF SECREATED FOR UA AND DRUG SCREENING. NO URINE NOTED AT THIS TIME IN BAG. PER DAY NURSE, DIALYSIS DONE TODAY WITH 2.2L OUTPUT. SR NOTED ON MONITOR. RIGHT HAND G22 PER DAY NURSE. SEMAJ FISTULA NOTED . SIGN IN ROOM PRESENT. PATIENT HAS SCDS PRESENT ON BLE WITH HEEL PROTECTORS ON BOTH HEELS. PATIENT PULSES FELT IN ALL EXTREMITIES AND ABLE TO MOVE ALL EXTREMITIES BY SELF. PATIENT SLOWER MOVING ON RIGHT SIDE. STATES CVA HISTORY. PATIENT NOTED TO HAVE LEFT BROWN BIG TOE COLORING. NO OPEN WOUNDS NOTED. WILL CONTINUE TO MONITOR. STATED PATIENT HEPATITIS C+ PER DAY SHIFT. PATIENT WATCHING TV AT THIS TIME. NO SOB OR DISTRESS NOTED. Addendum: 03/16/19 at 2111 by Diana Matias RN CHANGE OF SHIFT REPORT WAS GIVEN AT 0 NOT 2100.
[2019-03-16] MEDS: LATANOPROST 0.005% EYE DROPS OP SCH (21:13)
--- NOTE | 2019-03-16 22:46 | NUR ---
PATIENT LYING IN BED. SLEEPING AT THIS TIME. TV MUTED FOR PATIENT TO SLEEP. RESPIRATIONS SYMMETRICAL AND UNLABORED. FLACC 0. NO SOB OR DISTRESS NOTED AT THIS TIME.
[2019-03-17] VITALS: BP 125/63
--- NOTE | 2019-03-17 00:33 | NUR ---
PATIENT MOVING SELF IN BED. NO SOB OR DISTRESS NOTED. RESPIRATIONS UNLABORED. REFUSED HEAD OF BED DOWN ANY LOWER. STATES "IM FINE THIS WAY" REFUSED ANY FURTHER ASSISTANCE AT THIS TIME. AWAKENED TO NAME. AFEBRILE. NO BM OR URINE NOTED. WILL CONTINUE TO MONITOR AT THIS TIME.
--- NOTE | 2019-03-17 01:39 | NUR ---
PATIENT TOOK OFF HEEL PROTECTORS. REFUSED THEM ON AT THIS TIME. PATIENT CHANGED POSITIONS BY SELF. STATES "IM FINE RIGHT NOW" REFUSED THE BED LOWER. REFUSED BEING MOVED UP IN BED"IM OK THE WAY I AM" SMILE ON FACE. DENIES PAIN. VSS. NO SOB OR DISTRESS NOTED. IVF STILL RUNNING. DENIES BM OR URINE AT THIS TIME. WILL CONTINUE TO MONITOR.
--- NOTE | 2019-03-17 03:45 | NUR ---
CHECKED ON PATIENT WHEN RETURNED FROM LUNCH. LYING IN BED. CHANGED EKG PADS AT THIS TIME. VSS. NO SOB OR DISTRESS NOTED. DENIES PAIN"IM FINE" REFUSED HEEL PROTECTORS AT THIS TIME. ASSISTED IN REPOSITIONING
[2019-03-17 04:00] VITALS: BP 136/74
--- NOTE | 2019-03-17 04:40 | NUR ---
LAB AT PATIENT BEDSIDE. TURNED OFF IV FOR DRAW. NO INJURIES NOTED. WILL CONTINUE TO MONITOR.VSS. PATIENT TOLERATED WELL. NO SOB OR DISTRESS NOTED.
--- NOTE | 2019-03-17 05:38 | NUR ---
PATIENT STATES "STILL SLEEPING" WHEN ASKED IF WANTED BED CHANGED AND BATH. "IM COLD". WILL ENDORSE TO DAY SHIFT NURSE.
[2019-03-17 06:15] LABS: BASOPHILS # (AUTO) 0.1 K/uL (0.00-0.22); BASOPHILS % (AUTO) 0.7 % (0.0-2.0); EOSINOPHILS # (AUTO) 0.3 K/uL (0-0.4); EOSINOPHILS % (AUTO) 3.8 % (0.0-4.0); HEMATOCRIT 34.3 % (36-52); HEMOGLOBIN 11.3 g/dL (12.0-18.0); LYMPHOCYTES % (AUTO) 11.7 % (20.5-51.1); MEAN CORPUSCULAR HEMOGLOBIN 31 pg (27-31); MEAN CORPUSCULAR HGB CONC 33 g/dL (33-37); MEAN CORPUSCULAR VOLUME 92.6 fL (80-94); MONOCYTES # (AUTO) 1.1 K/uL (0.8-1.0); MONOCYTES % (AUTO) 13.5 % (1.7-9.3); NEUTROPHILS # (AUTO) 5.8 K/uL (1.8-7.7); NEUTROPHILS % (AUTO) 70.3 % (42.2-75.2); PLATELET COUNT (AUTO) 145 K/uL (140-450); RED CELL DISTRIBUTION WIDTH 15.6 % (11.6-13.7); WHITE BLOOD COUNT (AUTO) 8.3 K/uL (4.8-10.8)
--- NOTE | 2019-03-17 06:23 | NUR ---
PATIENT BEGAN TRANSFER VIA ICU BED WITH DENTAL MOLD MAKER. PATIENT ASSISTED TO TELE BED WITHOUT INJURY. ON TELE MONITOR. NO SOB OR DISTRESS NOTED. VSS PRIOR TO TRANSFER. ALL MEDS GIVEN TO [facility] MED ROOM. CHART GIVEN TO STAFF. PATIENT LYING IN BED AT THIS TIME. WATCHING TV. WILL CONTINUE TO MONITOR. Addendum: 03/17/19 at 0650 by Diana Matias RN WILL ENDORSE TO DAY SHIFT. PATIENT STABLE AT THIS TIME.
[2019-03-17 06:54] LABS: MAGNESIUM 1.6 mg/dL (1.8-2.4); PHOSPHORUS 4.9 mg/dL (2.5-4.9)
[2019-03-17] MEDS: BLOOD GLUCOSE MONITORING 1 DEV DEV FS SCH ×4 (07:13→21:56)
--- NOTE | 2019-03-17 07:14 | NUR ---
WILL ENDORSE 82 BS TO DAY SHIFT NURSE. PATIENT ALERT ORIENTED. TELE STABLE. TALKING WITHOUT ANY PROBLEMS. CLEAR SPEECH. SLIDING SCALE STATES NO INSULIN COVERAGE NEEDED AT THIS TIME. PATIENT LAUGHING WITH STAFF. RESPONDING TO NAME. ABLE TO STATE BIRTHDAY. "I FEEL FINE" "WATCHING TV RIGHT NOW"
[2019-03-17 07:35] LABS: CARBON DIOXIDE 25.1 mmol/L (21-32); CHLORIDE 100 mmol/L (98-107); GLUCOSE 97 mg/dL (74-106); POTASSIUM 4.1 mmol/L (3.5-5.1); SODIUM SERUM 135 mmol/L (136-145); UREA NITROGEN, BLOOD 28 mg/dL (7-18)
--- NOTE | 2019-03-17 07:35 | NUR ---
RECEIVED PT FROM ICU NURSE, MIKE, PT IS ASLEEP AND LYING ON THE BED WITH SIDE RAILS UP AND CALL LIGHT WITHIN REACH, RESTRICTED ARM ON THE LEFT UA WITH AV SHUNT FRO DIALYSIS ACCESS, PT HAS AN IV LINE ON THE RT HAND G. 18 WITH D5 NS AT 30ML/HR, NO SIGN OF DISTRESS NOTED AND WILL CONTINUE TO MONITOR PT.
[2019-03-17 08:00] VITALS: BP 157/62
[2019-03-17] MEDS: SEVELAMER CARBONATE 800 MG TAB PO SCH ×3 (08:00→18:04)
[2019-03-17 08:42] LABS: CREATININE 4.3 mg/dL (0.7-1.3)
[2019-03-17] MEDS: MUPIROCIN CA NASAL 2% 1GM TUBE NS SCH (11:03)
[2019-03-17] MEDS: PSYLLIUM 12.2 GM/PKT PO SCH (11:04)
[2019-03-17] MEDS: PANTOPRAZOLE 40 MG TABEC PO SCH (11:05)
[2019-03-17] MEDS: amLODIPine 5 MG TAB PO SCH (11:05)
[2019-03-17] MEDS: MEMANTINE 10 MG TAB PO SCH ×2 (11:05→21:46)
[2019-03-17] MEDS: CHLORHEXADINE GLUC 2% CLOTH TP SCH (11:07)
[2019-03-17] MEDS: VIT-B COMP/VIT-C/FOLIC ACID 1 TAB PO SCH (11:19)
[2019-03-17] MEDS: DORZOLAMIDE HCL OP SCH ×2 (11:24→21:50)
[2019-03-17] MEDS: [UNRECOGNIZED DRUG - OTHER] OP SCH ×2 (11:24→21:50)
[2019-03-17] MEDS: BRIMONIDINE TART OP SCH ×2 (11:25→21:48)
[2019-03-17] MEDS: EYE OP SCH ×2 (11:25→21:48)
--- NOTE | 2019-03-17 11:40 | NUR ---
BLOOD GLUCOSE CHECK DONE TO PT NOW AND RESULT IS 223, WILL GIVEN INSULIN COVERAGE.
[2019-03-17 12:00] VITALS: BP 154/66
--- NOTE | 2019-03-17 12:32 | NUR ---
PT WAS GIVEN INSULIN ON THE RT UA FOR THE BLOOD GLUCOSE OF 223, WILL MONITOR PT.
--- NOTE | 2019-03-17 14:51 | NUR ---
Photo Lab Manager Note: I reviewed patient's Advance Directive, it has Mateo Choi [address] [facility] [address] listed as primary health care agent and Alvaro Hood [address] [facility] [address] as alternate health care agent. However, patient's Luisana Richard is listed on patient's face sheet as "person to notify". Per Luisana, she is patient's health care decision maker, I explained to her that according to the Advance Directive it should be Mateo Choi. She told me Mateo is patient's friend and insisted she is patient's health care decision maker. I told her I will consult with shipping receiving manager/social service assistant Ramya Hampton regarding this. She verbalized understanding. Patient lives at home with his Luisana Richard and his pcp is Gabriela Underwood ([place], [place]). He has a wheelchair and walker at home, no home O2. Patient receives dialysis treatment at [place], [place]) on MWF. [place] provides transportation for patient to [facility] clinic. Luisana assist patient with ADLs at home. He was not receiving home health services prior to hospital admission. Addendum: 03/17/19 at 1657 by Ramya Estes SS I consulted case with shipping receiving manager/social service assistant dept Ramya Hampton, she reviewed patient's Advance Directive, she agreed patient's health care decision maker is patient's friend Mateo Barbosa Jimbo [address] [facility] [address] according to Advance Directive. Per Ramya Hampton, if Mateo does not want to be the health care decision maker, he needs to write/type a statement stating he would like to be revoked as health care decision maker; and secondary agent also needs to be contacted, Alvaro Hood [address] [facility] [address] . I called and spoke with Mateo Barbosa Jimbo. He stated he was under the impression patient's family was the health care decision maker and he was the secondary agent. I explained to him according to Advance Directive he is the primary agent. He told me he would like to research more information on Advance Directive and call me back to let me know if he would like to revoke as health care agent. At this time he is in agreement with making medical decisions on patient's behalf, manager internship Ramya Hampton made aware. Face sheet now has Mateo listed as "person to notify".
[2019-03-17] MEDS: DEXT 5% /NACL 0.9% 1,000 ML IV SCH (15:25)
[2019-03-17 16:00] VITALS: BP 158/73
--- NOTE | 2019-03-17 16:30 | NUR ---
BLOOD GLUCOSE CHECK DONE TO PT AND RESULT IS 167 AND NO INSULIN COVERAGE NEEDED PER [employer]ING [employer].
--- NOTE | 2019-03-17 18:04 | NUR ---
PT WAS GIVEN THE SCHEDULED MEDICATION ASSISTED BY THE PT'S AND PT TOLERATED IT. WILL MONITOR PT.
--- NOTE | 2019-03-17 19:20 | NUR ---
ENDORSED PT TO IS SUPPORT ANALYST NURSEDAVID FOR CONTINUITY OF CARE.
--- NOTE | 2019-03-17 19:21 | NUR ---
RECD. RESTING IN BED, AWAKE, A/OX2, SELDOM ANSWER WHEN QUESTIONS ASK BY NURSE. IV OF D5 NS AT 30 ML/HR INFUSING, RIGHT HAND G 18. AV SHUNT AT THE LEFT UPPER ARM WITH BRUIT AND THRILL. SEQUENTIALS ON BILATERAL LOWER EXTREMITIES ON. PLAN OF CARE DISCUSSED WITH PATIENT. NEEDS REINFORCEMENT. NO APPEARANCE OF PAIN NOTED, FLACC -0. AT THE BEDSIDE.
[2019-03-17 20:00] VITALS: BP 160/69
[2019-03-17] MEDS: SENNA 8.6 MG TAB PO SCH (21:46)
[2019-03-17] MEDS: MELATONIN 3 MG TAB PO SCH (21:46)
[2019-03-17] MEDS: LATANOPROST 0.005% EYE DROPS OP SCH (22:05)
[2019-03-18] VITALS: BP 164/62
--- NOTE | 2019-03-18 00:45 | NUR ---
INFORMED DR. VALADEZ PATIENT UNABLE TO SLEEP EVEN THOUGHT MEDICATED WITH MELATONIN EARLIER. AGITATED, BP - 164/67, ALWAYS PULLING OUT MONITOR WIRES. CAN'T GIVE ATIVAN PATIENT HAS BEEN WITH HYPOGLYCEMIA, JUST PROVIDE QUIET ENVIRONMENT AND COMFORT.
--- NOTE | 2019-03-18 03:00 | NUR ---
STILL AWAKE, KEEP ON PULLING OUT MONITOR WIRES.REORIENTED TO HOSPITAL SETTING. UNABLE TO UNDERSTAND.
[2019-03-18 04:00] VITALS: BP 160/66
--- NOTE | 2019-03-18 04:00 | NUR ---
PULLED OUT TELE MONITOR WIRES FOR THE EIGHT TIME. PUT IT BACK IN PLACED AND INSTRUCTED ON IT'S IMPORTANCE. UNABLE TO UNDERSTAND.
[2019-03-18 05:59] LABS: BASOPHILS # (AUTO) 0.1 K/uL (0.00-0.22); BASOPHILS % (AUTO) 0.9 % (0.0-2.0); EOSINOPHILS # (AUTO) 0.3 K/uL (0-0.4); EOSINOPHILS % (AUTO) 4.4 % (0.0-4.0); HEMATOCRIT 35.4 % (36-52); HEMOGLOBIN 11.6 g/dL (12.0-18.0); LYMPHOCYTES # (AUTO) 0.9 K/uL (2.0-11.5); LYMPHOCYTES % (AUTO) 11.7 % (20.5-51.1); MEAN CORPUSCULAR HEMOGLOBIN 30 pg (27-31); MEAN CORPUSCULAR HGB CONC 33 g/dL (33-37); MEAN CORPUSCULAR VOLUME 92.5 fL (80-94); MONOCYTES # (AUTO) 0.9 K/uL (0.8-1.0); MONOCYTES % (AUTO) 11.5 % (1.7-9.3); NEUTROPHILS # (AUTO) 5.6 K/uL (1.8-7.7); NEUTROPHILS % (AUTO) 71.5 % (42.2-75.2); PLATELET COUNT (AUTO) 155 K/uL (140-450); RED BLOOD CELL COUNT(AUTO) 3.82 MIL/uL (4.20-6.10); RED CELL DISTRIBUTION WIDTH 15.4 % (11.6-13.7); WHITE BLOOD COUNT (AUTO) 7.8 K/uL (4.8-10.8)
[2019-03-18] MEDS: BLOOD GLUCOSE MONITORING 1 DEV DEV FS SCH ×2 (06:42→12:10)
--- NOTE | 2019-03-18 07:00 | NUR ---
NEW IV LINE INSERTED RIGHT HAND G24. CONDITION REMAIN STABLE. WILL ENDORSE TO AM SHIFT NURSE FOR CONTINUITY OF CARE.
[2019-03-18 07:07] LABS: ANION GAP 13.6 (8-16); CARBON DIOXIDE 24.8 mmol/L (21-32); CHLORIDE 98 mmol/L (98-107); GLUCOSE 115 mg/dL (74-106); POTASSIUM 4.4 mmol/L (3.5-5.1); SODIUM SERUM 132 mmol/L (136-145); UREA NITROGEN, BLOOD 42 mg/dL (7-18)
[2019-03-18 07:10] LABS: CREATININE 5.9 mg/dL (0.7-1.3)
[2019-03-18 07:17] LABS: MAGNESIUM 1.9 mg/dL (1.8-2.4); PHOSPHORUS 5.2 mg/dL (2.5-4.9)
--- NOTE | 2019-03-18 07:35 | NUR ---
RECEIVED PT FROM [facility], PT IS AWAKE AND AGITATED LYING ON THE BED WITH SIDE RAISL UP AND CALL LIGHT WITHIN REACH, IV LINE ON THE RT FA G. 24 WITH D5NS INFUSING AT 30ML/HR, INTACT, RESTRICTED ARM ON THE LEFT, AV SHUNT PLACED ON THE LEFT ARM FOR DIALYSIS ACCESS, ON ROOM AIR AND AOX2, NO SIGN OF DISTRESS NOTED AND WILL MONITOR PT.
[2019-03-18 08:00] VITALS: BP 160/60
[2019-03-18] MEDS: amLODIPine 5 MG TAB PO SCH (09:00)
--- NOTE | 2019-03-18 09:30 | NUR ---
DIALYSIS WAS STARTED TO PT NOW.
[2019-03-18] MEDS: PSYLLIUM 12.2 GM/PKT PO SCH (10:21)
[2019-03-18] MEDS: PANTOPRAZOLE 40 MG TABEC PO SCH (10:22)
[2019-03-18] MEDS: MEMANTINE 10 MG TAB PO SCH (10:22)
[2019-03-18] MEDS: VIT-B COMP/VIT-C/FOLIC ACID 1 TAB PO SCH (10:22)
[2019-03-18] MEDS: SEVELAMER CARBONATE 800 MG TAB PO SCH ×2 (10:22→13:46)
[2019-03-18] MEDS: MUPIROCIN CA NASAL 2% 1GM TUBE NS SCH (10:22)
--- NOTE | 2019-03-18 10:22 | NUR ---
PT KIS AWAKE AND DIALYSIS WAS STILL ON GOING, PT'S SCHEDULED AM MEDICATIONS WERE GIVEN TO PT AND TOLERATED IT, WILL CONTINUE TO MONITOR PT.
[2019-03-18] MEDS: CHLORHEXADINE GLUC 2% CLOTH TP SCH (10:23)
[2019-03-18] MEDS: BRIMONIDINE TART OP SCH (10:24)
[2019-03-18] MEDS: EYE OP SCH (10:24)
[2019-03-18] MEDS: [UNRECOGNIZED DRUG - OTHER] OP SCH (10:25)
[2019-03-18] MEDS: DORZOLAMIDE HCL OP SCH (10:25)
[2019-03-18 12:00] VITALS: BP 130/57
--- NOTE | 2019-03-18 12:10 | NUR ---
PT'S BLOOD GLUCOSE WAS CHECKED AND RESULT IS 187, NO INSULIN COVERAGE PER SLIDING SCALE.
--- NOTE | 2019-03-18 12:17 | NUR ---
PT'S IS ON THE BEDSIDE NOW.
--- NOTE | 2019-03-18 13:00 | NUR ---
DIALYSIS WAS FINISHED NOW, PT'S IS 140/91.
[2019-03-18] MEDS ORDERED: CHLO118S2 TP (13:16)
[2019-03-18] MEDS ORDERED: MUPI2CRE22 NS (13:16)
[2019-03-18] MEDS: EPOETIN ALFA 10,000 UNITS/ML VIAL IV SCH (13:46)
--- NOTE | 2019-03-18 13:46 | NUR ---
PT'S EPOGEN AND SCHEDULED MEDICATION WERE GIVEN NOW.
--- NOTE | 2019-03-18 14:00 | NUR ---
P.T. NOTES HOLD P.T. TX TODAY, ON DIALYSIS.
--- NOTE | 2019-03-18 15:15 | NUR ---
DIETARY EDUCATION WAS GIVEN TO PATIENT'S FOR HIGH PHOSPHORUS AND HIGH POTASSIUM CONTENT FOODS.
--- NOTE | 2019-03-18 15:45 | NUR ---
DISCHARGED PT TO HOME WITH , PT CANNOT COMPREHEND AND DISCHARGED INSTRUCTIONS AND TEACHINGS WERE GIVEN TO PT'S AND VERBALIZED UNDERSTANDING. IV LINE AND ARM BAND REMOVED, PT IS STABLE AT THIS TIME.
== END 2019-03-18 15:45 | disposition home or self-care (01) | DRG 637 ==
LOC: MED 20:24 → MIC 03-16 01:54 → MTU 03-17 06:25
PROVIDERS: ADMIT General Practice; ATTEND General Practice
PROC: 5A1D70Z Performance of Urinary Filtration, Intermittent, Less than 6 Hours Per Day (ICD-10-PCS; principal; 2019-03-17)
PROC: 5A1D70Z Performance of Urinary Filtration, Intermittent, Less than 6 Hours Per Day (ICD-10-PCS; 2019-03-18)
DX: E11.649 Type 2 diabetes mellitus with hypoglycemia without coma (principal); G93.41 Metabolic encephalopathy; E43 Unspecified severe protein-calorie malnutrition; E87.1 Hypo-osmolality and hyponatremia; I12.0 Hypertensive chronic kidney disease with stage 5 chronic kidney disease or end stage renal disease; Z68.1 Body mass index [BMI] 19.9 or less, adult; N18.6 End stage renal disease; F03.90 Unspecified dementia, unspecified severity, without behavioral disturbance, psychotic disturbance, mood disturbance, and anxiety; I25.10 Atherosclerotic heart disease of native coronary artery without angina pectoris; K21.9 Gastro-esophageal reflux disease without esophagitis; E87.8 Other disorders of electrolyte and fluid balance, not elsewhere classified; K57.90 Diverticulosis of intestine, part unspecified, without perforation or abscess without bleeding; T38.3X5A Adverse effect of insulin and oral hypoglycemic [antidiabetic] drugs, initial encounter; E83.39 Other disorders of phosphorus metabolism; E11.22 Type 2 diabetes mellitus with diabetic chronic kidney disease; D63.1 Anemia in chronic kidney disease; Z86.73 Personal history of transient ischemic attack (TIA), and cerebral infarction without residual deficits; Z88.8 Allergy status to other drugs, medicaments and biological substances; Z79.899 Other long term (current) drug therapy; Z85.46 Personal history of malignant neoplasm of prostate; Z99.2 Dependence on renal dialysis; Y92.89 Other specified places as the place of occurrence of the external cause
CPT/HCPCS: 36415; 71045; 80048; 80053; 82140; 82948; 83036; 83735; 83880; 84100; 84134; 84443; 84484; 85025; 85610; 85730; 87081; 87804; 93005; 96360; 96361; 97112; 97116; 97161-GP; 99285; G0482; J0885; J1815; J7030; Q0092

== ENCOUNTER 2019-04-27 10:37 | Emergency (ER) | payer OTHER ==
[~2019-04-27] VITALS: Ht 165.1 cm; Wt 59.0 kg
[~2019-04-27 10:37] MED LIST changes: +CHLO118S2 TP; -FERR325E14 PO; -HUM SUBQ; -MEMA10TA20 PO; +MEMA10TA56 PO; +MUPI2CRE22 NS; -PIPE1PDS39 IV
[2019-04-27 10:46] VITALS: BP 171/72
--- NOTE | 2019-04-27 11:10 | NUR ---
XRAY AT BEDSIDE
--- NOTE | 2019-04-27 11:20 | NUR ---
73 Y/O MALE BROUGHT TO ER BY . STATES AFFAIRS NURSE REQUESTED PT BE BROUGHT INTO ER BECAUSE OF UNSTABLE VITALS, AND LOW GRADE FEVER. PER PT'S GLUCOSE WAS 290 WHICH IS HIGHER THAN NORMAL. ALSO STATED PT HAD BEEN TREATED FOR UTI AT [facility] 3 WEEKS AGO. R/R EQUAL, UNLABORED. PT ALSO HAS DIALYSIS M/W/F. PT PLACED ON MONITOR. WILL CONTINUE TO MONITOR SIDERAILS X2 PMH: GLAUCOMA, DM, PROSTATE CANCER, DEMENTIA, CVA X4, LLQ HERNIA, RENAL DISEASE ALLERGIES: PENICILLIN
[2019-04-27 11:36] LABS: BASOPHILS % (AUTO) 0.2 % (0.0-2.0); EOSINOPHILS % (AUTO) 0.2 % (0.0-4.0); HEMATOCRIT 34.1 % (36-52); HEMOGLOBIN 11.4 g/dL (12.0-18.0); LYMPHOCYTES # (AUTO) 0.9 K/uL (2.0-11.5); LYMPHOCYTES % (AUTO) 4.4 % (20.5-51.1); MEAN CORPUSCULAR HEMOGLOBIN 31 pg (27-31); MEAN CORPUSCULAR HGB CONC 33 g/dL (33-37); MEAN CORPUSCULAR VOLUME 91.3 fL (80-94); MONOCYTES # (AUTO) 1.1 K/uL (0.8-1.0); MONOCYTES % (AUTO) 5.4 % (1.7-9.3); NEUTROPHILS % (AUTO) 89.8 % (42.2-75.2); PLATELET COUNT (AUTO) 180 K/uL (140-450); RED BLOOD CELL COUNT(AUTO) 3.74 MIL/uL (4.20-6.10); RED CELL DISTRIBUTION WIDTH 16.4 % (11.6-13.7)
--- NOTE | 2019-04-27 11:41 | NUR ---
urine collected from pt via straight cath. pt tolerated procedure well.
[2019-04-27 11:55] LABS: ALBUMIN 3.2 g/dL (3.4-5.0); ASPARTATE AMINOTRANSFERASE 22 U/L (15-37); CARBON DIOXIDE 32.4 mmol/L (21-32); CHLORIDE 103 mmol/L (98-107); GLUCOSE 250 mg/dL (74-106); POTASSIUM 4.4 mmol/L (3.5-5.1); SODIUM SERUM 143 mmol/L (136-145); TOTAL BILIRUBIN 0.5 mg/dL (0.0-1.0)
[2019-04-27 11:57] LABS: CREATININE 6.7 mg/dL (0.6-1.3)
[2019-04-27 11:58] LABS: UREA NITROGEN, BLOOD 52 mg/dL (7-18)
[2019-04-27 13:12] VITALS: BP 122/70
--- NOTE | 2019-04-27 13:16 | NUR ---
Patient discharged with v/s stable. Written and verbal after care instructions given and explained. Patient alert, oriented and verbalized understanding of instructions. Wheel Chair Assisted with to car. All questions addressed prior to discharge. ID band removed. Patient advised to follow up with PMD. Rx of CIPRO given. Patient educated on indication of medication including possible reaction and side effects. Opportunity to ask questions provided and answered.
[2019-04-27 13:20] LABS: BILIRUBIN,URINE NEGATIVE (NEGATIVE); BLOOD, URINE 1+ (NEGATIVE); COLOR,URINE YELLOW (YELLOW); LEUKOCYTE ESTERASE ,URINE 2+ (NEGATIVE); NITRITE, URINE NEGATIVE (NEGATIVE); PH,URINE 8.5 (5.0-9.0); UGLUCOSE 3+ (NEGATIVE)
[2019-04-27 13:26] LABS: APPEARANCE,URINE SLIGHTLY HAZY (CLEAR)
== END 2019-04-27 13:16 | disposition home or self-care (01) ==
LOC: MED 10:37
DX: N39.0 Urinary tract infection, site not specified (principal); R53.1 Weakness; R05 Cough; E11.65 Type 2 diabetes mellitus with hyperglycemia; F03.90 Unspecified dementia, unspecified severity, without behavioral disturbance, psychotic disturbance, mood disturbance, and anxiety; K21.9 Gastro-esophageal reflux disease without esophagitis; Z86.73 Personal history of transient ischemic attack (TIA), and cerebral infarction without residual deficits; Z85.46 Personal history of malignant neoplasm of prostate; Z88.0 Allergy status to penicillin; Z88.8 Allergy status to other drugs, medicaments and biological substances; Z79.899 Other long term (current) drug therapy
CPT/HCPCS: 36415; 71045; 80053; 81001; 83605; 83880; 84484; 85025; 87040; 87086; 93005; 99285; C1758; Q0092